=== PATIENT | female | born 1990 | race Caucasian/White ===

== ENCOUNTER 2018-07-12 15:25 | Emergency (ER) | payer SELFPAY ==
--- NOTE | 2018-07-12 15:29 | ED.FEMALEGU ---
HPI - Female Genitourinary <JENN Carrizales - Last Filed: 07/12/18 22:11> General Chief complaint: Abdominal Pain Stated complaint: states has a female problem Time Seen by Provider: 07/12/18 15:29 Source: patient Mode of arrival: ambulatory Limitations: no limitations History of Present Illness HPI Narrative: 28-year-old female with history of PCOS is an everyday smoker here for multiple complaints. She states she has had breast pain to bilateral breast along with chest pain for the past several days. She denies any drainage or redness to the breast. She also complains of having a bilateral lower abdominal pain right greater than left over the same timeframe. She denies any urinary symptoms. Positive p.o. intake. No nausea vomiting. She denies any shortness of breath. No flank pain. She denies any urinary symptoms. Last bowel movement was yesterday and was unremarkable. She denies any strenuous activity. She denies any trauma to the painful areas. She denies any stressors or relievers of her pain. Related Data Allergies Allergy/AdvReac Type Severity Reaction Status Date / Time No Known Drug Allergies Allergy Verified 07/12/18 15:45 Review of Systems <JENN Carrizales - Last Filed: 07/12/18 22:11> Constitutional Denies chills, Denies fatigue, Denies fever(s), Denies lethargy and Denies weakness Eyes Denies change in vision, Denies eye discharge, Denies irritation and Denies loss of vision ENT Ears, Nose, Mouth, and Throat: Denies change in voice, Denies neck pain and Denies sore throat Cardiovascular Denies dyspnea and Denies dyspnea on exertion Comments: Chest pain Respiratory Denies cough, Denies dyspnea, Denies dyspnea on exertion and Denies wheezing Gastrointestinal Comments: Bilateral lower abdominal pain and pelvic pain right greater than left Genitourinary Denies hematuria, Denies flank pain, Denies urinary incontinence and Denies urinary urgency Musculoskeletal Denies neck pain Integumentary/Breasts Denies pruritus, Denies erythema, Denies rash and Denies wounds Comments: Tenderness to bilateral breasts Neurologic Denies confusion, Denies loss of vision and Denies weakness Psychiatric Denies anxiety, Denies confusion, Denies depression, Denies homicidal ideation and Denies suicidal ideation Endocrine Denies fatigue and Denies flushing Hematologic/Lymphatic Denies easy bruising Allergic/Immunologic Denies wheezing Exam <JENN Carrizales - Last Filed: 07/12/18 22:11> Initial Vital Signs Initial Vital Signs: Vital Signs Temperature 99.1 F 07/12/18 15:40 Pulse Rate 75 07/12/18 15:40 Respiratory Rate 18 07/12/18 15:40 Blood Pressure 124/85 07/12/18 15:40 Pulse Oximetry 100 07/12/18 15:40 Const General: cooperative and well developed Nutritional Appearance: well nourished Orientation: alert, awake, oriented x3 and not confused [facility] Mouth: oral mucosae normal and moist mucous membranes Eyes General: appearance normal, both eyes and all related structures Eyelids: eyelids normal Conjunctivae: conjunctivae normal Sclera: sclerae normal Pupils: PERRL EOM: EOM intact bilaterally Chest Chest: tenderness (Tenderness on palpation to anterior chest wall) Breast inspection: normal inspection of the breasts and other (Bilateral breast with normal inspection. No abnormal findings with exception of tenderness on palpation. No redness no drainage) Resp Effort & Inspection: normal respiratory effort, able to speak in complete sentences, no respiratory distress and no use of accessory muscles Auscultation: clear to auscultation bilaterally, no rales, no rhonchi and no wheezes Cardio Rate: regular rate Rhythm: regular rhythm Heart Sounds: no click, no gallops, no murmurs and no rubs Pulses: normal peripheral pulses GI Inspection: non-distended Palpation: soft, no hepatosplenomegaly, No guarding, No pulsatile mass and tender (Tenderness to the suprapubic region and also to the right lower quadrant) Auscultation: normal bowel sounds General: No CVA tenderness Skin General: no rashes or lesions noted, No jaundice and No petechiae Neuro General: alert, oriented x3, gait normal and no focal motor deficits Speech: speech normal <Sabas Carr DO - Last Filed: 07/14/18 20:08> Initial Vital Signs Initial Vital Signs: Vital Signs Temperature 99.1 F 07/12/18 15:40 Pulse Rate 75 07/12/18 15:40 Respiratory Rate 18 07/12/18 15:40 Blood Pressure 124/85 07/12/18 15:40 Pulse Oximetry 100 07/12/18 15:40 Course <JENN Carrizales - Last Filed: 07/12/18 22:11> Orders Ordered: Discontinued Medications Sodium Chloride (Normal Saline 0.9%) 1,000 mls @ 1,000 mls/hr IV BOLUS ONE Stop: 07/12/18 16:56 Last Infusion: 07/12/18 17:27 Dose: 0 mls/hr Admin: 07/12/18 16:34 Dose: 1,000 mls/hr Vital Signs - 8 hr 07/12/18 15:40 07/12/18 16:42 07/12/18 18:05 Temperature 99.1 F Pulse Rate 75 61 72 Respiratory Rate 18 16 17 Blood Pressure 124/85 121/80 Blood Pressure [Left Arm] 104/61 Pulse Oximetry 100 100 97 <Sabas Carr DO - Last Filed: 07/14/18 20:08> Orders Ordered: Discontinued Medications Sodium Chloride (Normal Saline 0.9%) 1,000 mls @ 1,000 mls/hr IV BOLUS ONE Stop: 07/12/18 16:56 Last Infusion: 07/12/18 17:27 Dose: 0 mls/hr Admin: 07/12/18 16:34 Dose: 1,000 mls/hr Vital Signs - 8 hr 07/12/18 15:40 07/12/18 16:42 07/12/18 18:05 Temperature 99.1 F Pulse Rate 75 61 72 Respiratory Rate 18 16 17 Blood Pressure 124/85 121/80 Blood Pressure [Left Arm] 104/61 Pulse Oximetry 100 100 97 MDM - Female Genitourinary <JENN Carrizales - Last Filed: 07/12/18 22:11> Lab Data Result diagrams: 07/12/18 16:10 07/12/18 16:10 Lab Results 07/12/18 07/12/18 07/12/18 Range/Units 15:40 16:10 16:10 WBC 11.0 (4.5-11.0) X10^3/uL RBC 4.06 (4.0-5.2) X10^6/uL Hgb 13.6 (12.0-16.0) g/dL Hct 38.9 (36-46) % MCV 95.9 (80-100) fL MCH 33.5 (26-34) PG MCHC 35.0 (30-36) % RDW 12.5 (11.6-14.8) % Plt Count 182 (150-400) X10^3/uL Neut % (Auto) 74.2 (50-75) % Lymph % (Auto) 18.8 L (25-40) % Dod[place]idge % (Auto) 3.7 (3-14) % Eos % (Auto) 2.9 (2-4) % Baso % (Auto) 0.4 (0-2) % Neut # (Auto) 8200 H (4081-5493) /uL Sodium 142 (137-145) mmol/L Potassium 3.9 (3.4-5.1) mmol/L Chloride 108 H (98-107) mmol/L Carbon Dioxide 21 L (22-32) mmol/L BUN 12 (7-17) mg/dL Creatinine 0.70 (0.52-1.04) mg/dL Estimated GFR > 60.0 (>60) mL/min BUN/Creatinine Ratio 17.1 (6-22) Glucose 102 H (70-100) mg/dL Calcium 8.9 (8.4-10.2) mg/dL Total Bilirubin 0.2 (0.2-1.3) mg/dL AST 13 L (14-36) IU/L ALT 19 (9-52) IU/L Alkaline Phosphatase 50 (38-126) U/L Total Creatine Kinase (30-135) U/L CK-MB (CK-2) CK-MB (CK-2) Rel Index Troponin I (0.01-0.034) ng/mL Total Protein 7.0 (6.3-8.2) g/dL Albumin 4.4 (3.5-5.0) g/dL Globulin 2.6 (1.7-4.1) g/dL Albumin/Globulin Ratio 1.7 (1.0-2.8) Lipase 205 (23-300) U/L Urine RBC 1-5/hpf (0-5/HPF) Urine WBC None seen (0-5/HPF) Ur Squamous Epith Cells 1-5 /hpf Urine Bacteria None seen (None) Urine Mucus 2+ H (Negative) Ur Culture Indicated? Cult not indicated Micro UA Comment Not Reportable 07/12/18 Range/Units 16:10 WBC (4.5-11.0) X10^3/uL RBC (4.0-5.2) X10^6/uL Hgb (12.0-16.0) g/dL Hct (36-46) % MCV (80-100) fL MCH (26-34) PG MCHC (30-36) % RDW (11.6-14.8) % Plt Count (150-400) X10^3/uL Neut % (Auto) (50-75) % Lymph % (Auto) (25-40) % Doddridge % (Auto) (3-14) % Eos % (Auto) (2-4) % Baso % (Auto) (0-2) % Neut # (Auto) (8854-7470) /uL Sodium (137-145) mmol/L Potassium (3.4-5.1) mmol/L Chloride (98-107) mmol/L Carbon Dioxide (22-32) mmol/L BUN (7-17) mg/dL Creatinine (0.52-1.04) mg/dL Estimated GFR (>60) mL/min BUN/Creatinine Ratio (6-22) Glucose (70-100) mg/dL Calcium (8.4-10.2) mg/dL Total Bilirubin (0.2-1.3) mg/dL AST (14-36) IU/L ALT (9-52) IU/L Alkaline Phosphatase (38-126) U/L Total Creatine Kinase 32 (30-135) U/L CK-MB (CK-2) TNP CK-MB (CK-2) Rel Index TNP Troponin I < 0.012 (0.01-0.034) ng/mL Total Protein (6.3-8.2) g/dL Albumin (3.5-5.0) g/dL Globulin (1.7-4.1) g/dL Albumin/Globulin Ratio (1.0-2.8) Lipase (23-300) U/L Urine RBC (0-5/HPF) Urine WBC (0-5/HPF) Ur Squamous Epith Cells Urine Bacteria (None) Urine Mucus (Negative) Ur Culture Indicated? Micro UA Comment Point of Care Testing Test Results Negative Urine Dip Bedside Urine Glucose Negative Bedside Urine Bilirubin - Negative Bedside Urine Ketone - Negative Urine Specific Reedley 1.030 Bedside Urine Occult Blood + Bedside Urine pH 6.0 Bedside Urine Protein - Negative Bedside Urine Urobilinogen - Negative Bedside Urine Nitrite - Negative Bedside Urine Leukocytes - Negative Esterase Imaging Data CT scan - abdomen: Radiologist's impression: [address] [address] [address] Scan Report Signed Patient: Flores Sorensen [facility]#: [id number] : 1990Acct:[id number] Age/Sex: 28 / FDate of Service: 07/12/18 Loc: ED Accession Number: [id number] Procedure: CT chest abd pel w con Ordering Provider: Ian Pantoja PROCEDURE: CT CHEST ABD PEL W CON INDICATIONS: Pain to chest, breast and right lower quadrant TECHNIQUE: After the administration of intravenous contrast, 5 mm thick sections acquired from the lung apices to the symphysis. 5 mm coronal and sagittal reformats were performed, with additional 7 mm MIP reformats through the lungs. For radiation dose reduction, the following was used: automated exposure control, adjustment of mA and/or kV according to patient size. COMPARISON: None. FINDINGS: Image quality: Excellent. CHEST: Lungs and pleura: No acute airspace opacities. No pleural effusions or pneumothorax. Central and peripheral airways appear patent and normal in caliber. Mediastinum: Heart size is normal. No pericardial effusion. No mediastinal or hilar adenopathy by size criteria. Thoracic aorta and central pulmonary arteries are normal in size. Esophagus is normal in caliber. No hiatal hernia. Chest wall: No axillary or supraclavicular adenopathy by size criteria. Thyroid gland is unremarkable. ABDOMEN: Solid organs: Liver is enlarged with steatosis. Gallbladder demonstrates a slight layering appearance of hyperdensity without wall thickening. Biliary system is non dilated. Pancreas enhances normally. Spleen is normal in size and enhancement. No adrenal nodules. Kidneys demonstrate normal size and enhancement, without hydronephrosis. Peritoneum and bowel: Bowel loops demonstrate normal wall thickness and caliber. No free fluid or air. Appendix is unremarkable. Nodes and vessels: No retroperitoneal or mesenteric adenopathy by size criteria. Aorta and inferior vena cava are normal in size. Miscellaneous: No ventral hernias. PELVIS: Genitourinary: Bladder wall thickness is normal. 16mm enhancing low attenuation focus is present within the left adnexa. There is trace stranding fluid. Miscellaneous: No inguinal hernias or adenopathy. Bones: No suspicious bony lesions. No vertebral body compression fractures. IMPRESSION: 1. Enhancing focus within the left adnexa suggestive of hemorrhagic cyst. 2. Hepatomegaly and steatosis. 3. Mild appearance of layering hyperdensity within the gallbladder without wall thickening suggestive of sludge. Dictated by: Xi Rushing M.D. on 07/12/2018 at 16:50 Approved by: Xi Rushing M.D. on 07/12/2018 at 16:54 ECG Data Interpretation: EKG shows normal sinus rhythm with no ST elevation or depression. No ectopy. Ventricular rate is 73. Pr interval of 127. QRS duration of 89. QT 383. MDM Narrative Medical decision making narrative: CBC was obtained shows slightly elevated neutrophils otherwise is unremarkable. Chem panel lipase were obtained and were negative. One set of cardiac enzymes were obtained were negative. CT of abdomen chest and pelvis was obtained and shows area to the left add masses suggestive of a hemorrhagic cyst. It does show that there is hepatomegaly with steatosis. CT also shows that there is sludge to the gallbladder without evidence of cholecystitis. Suspect that her breast tenderness may be due to PCOS and hormone influence. Pain was reproducible to the chest with palpation to the chest wall indicating chest wall pain. Pain into the pelvic area secondary to PCOS and the hemorrhagic cyst. [id number] Tylenol or Motrin as needed for any discomfort. Follow up with primary care provider later this week. If any worsening symptoms return to the emergency room. <Sabas Carr DO - Last Filed: 07/14/18 20:08> Lab Data Lab Results 07/12/18 07/12/18 07/12/18 Range/Units 15:40 16:10 16:10 WBC 11.0 (4.5-11.0) X10^3/uL RBC 4.06 (4.0-5.2) X10^6/uL Hgb 13.6 (12.0-16.0) g/dL Hct 38.9 (36-46) % MCV 95.9 (80-100) fL MCH 33.5 (26-34) PG MCHC 35.0 (30-36) % RDW 12.5 (11.6-14.8) % Plt Count 182 (150-400) X10^3/uL Neut % (Auto) 74.2 (50-75) % Lymph % (Auto) 18.8 L (25-40) % Doddridge % (Auto) 3.7 (3-14) % Eos % (Auto) 2.9 (2-4) % Baso % (Auto) 0.4 (0-2) % Neut # (Auto) 8200 H (6993-2950) /uL Sodium 142 (137-145) mmol/L Potassium 3.9 (3.4-5.1) mmol/L Chloride 108 H (98-107) mmol/L Carbon Dioxide 21 L (22-32) mmol/L BUN 12 (7-17) mg/dL Creatinine 0.70 (0.52-1.04) mg/dL Estimated GFR > 60.0 (>60) mL/min BUN/Creatinine Ratio 17.1 (6-22) Glucose 102 H (70-100) mg/dL Calcium 8.9 (8.4-10.2) mg/dL Total Bilirubin 0.2 (0.2-1.3) mg/dL AST 13 L (14-36) IU/L ALT 19 (9-52) IU/L Alkaline Phosphatase 50 (38-126) U/L Total Creatine Kinase (30-135) U/L CK-MB (CK-2) CK-MB (CK-2) Rel Index Troponin I (0.01-0.034) ng/mL Total Protein 7.0 (6.3-8.2) g/dL Albumin 4.4 (3.5-5.0) g/dL Globulin 2.6 (1.7-4.1) g/dL Albumin/Globulin Ratio 1.7 (1.0-2.8) Lipase 205 (23-300) U/L Urine RBC 1-5/hpf (0-5/HPF) Urine WBC None seen (0-5/HPF) Ur Squamous Epith Cells 1-5 /hpf Urine Bacteria None seen (None) Urine Mucus 2+ H (Negative) Ur Culture Indicated? Cult not indicated Micro UA Comment Not Reportable 07/12/18 Range/Units 16:10 WBC (4.5-11.0) X10^3/uL RBC (4.0-5.2) X10^6/uL Hgb (12.0-16.0) g/dL Hct (36-46) % MCV (80-100) fL MCH (26-34) PG MCHC (30-36) % RDW (11.6-14.8) % Plt Count (150-400) X10^3/uL Neut % (Auto) (50-75) % Lymph % (Auto) (25-40) % Doddridge % (Auto) (3-14) % Eos % (Auto) (2-4) % Baso % (Auto) (0-2) % Neut # (Auto) (3068-1286) /uL Sodium (137-145) mmol/L Potassium (3.4-5.1) mmol/L Chloride (98-107) mmol/L Carbon Dioxide (22-32) mmol/L BUN (7-17) mg/dL Creatinine (0.52-1.04) mg/dL Estimated GFR (>60) mL/min BUN/Creatinine Ratio (6-22) Glucose (70-100) mg/dL Calcium (8.4-10.2) mg/dL Total Bilirubin (0.2-1.3) mg/dL AST (14-36) IU/L ALT (9-52) IU/L Alkaline Phosphatase (38-126) U/L Total Creatine Kinase 32 (30-135) U/L CK-MB (CK-2) TNP CK-MB (CK-2) Rel Index TNP Troponin I < 0.012 (0.01-0.034) ng/mL Total Protein (6.3-8.2) g/dL Albumin (3.5-5.0) g/dL Globulin (1.7-4.1) g/dL Albumin/Globulin Ratio (1.0-2.8) Lipase (23-300) U/L Urine RBC (0-5/HPF) Urine WBC (0-5/HPF) Ur Squamous Epith Cells Urine Bacteria (None) Urine Mucus (Negative) Ur Culture Indicated? Micro UA Comment Point of Care Testing Test Results Negative Urine Dip Bedside Urine Glucose Negative Bedside Urine Bilirubin - Negative Bedside Urine Ketone - Negative Urine Specific Reedley 1.030 Bedside Urine Occult Blood + Bedside Urine pH 6.0 Bedside Urine Protein - Negative Bedside Urine Urobilinogen - Negative Bedside Urine Nitrite - Negative Bedside Urine Leukocytes - Negative Esterase Discharge Plan Departure Patient Disposition: Home Clinical Impression: Cyst of left ovary, Acute chest wall pain, Breast tenderness in female Discharge Date/Time: 07/12/18 18:06 Interventions: ED Discharge Assessment Last Done: 07/12/18 18:05 Instructions: DI for Ovarian Cyst Activity Restrictions/Additional Instructions: CT of the chest and abdomen was obtained and does show a hemorrhagic cyst to the left ovary most likely causing your pelvic/abdominal discomfort. CT also shows fatty liver an enlargement this is not an acute finding. CT also shows some sludge to the gallbladder however no signs of cholecystitis. Pain into the chest appears to be chest wall pain and musculoskeletal in nature. Use [id number] ibuprofen as needed for any discomfort for this. Suspect that the breast pain is due to hormone secondary to the PCOS/hemorrhagic cyst. Also use [id number] Tylenol or Motrin as needed for any discomfort for this. Follow up with primary care provider later this week for re-evaluation. For any worsening symptoms return to the emergency room. You may call OBGYN if unable to follow up with primary care provider. Referrals: Tonya Rosenthal MD [Physician] - <Sabas Carr DO - Last Filed: 07/14/18 20:08> Cosign ED Attending Pamela Attestation: I was available for consultation during this patient's emergency department encounter
[2018-07-12 15:40] VITALS: BP 124/85; PULSE 75; RESP 18; TEMP 37.3; O2SAT 100; BMI 30.2
[2018-07-12 15:49] LABS: Bacteria Urine None Seen; WBC Urine None Seen (0-5/HPF)
--- NOTE | 2018-07-12 15:57 | DI.CT.S_ITS ---
PROCEDURE: CT CHEST ABD PEL W CON INDICATIONS: Pain to chest, breast and right lower quadrant TECHNIQUE: After the administration of intravenous contrast, 5 mm thick sections acquired from the lung apices to the symphysis. 5 mm coronal and sagittal reformats were performed, with additional 7 mm MIP reformats through the lungs. For radiation dose reduction, the following was used: automated exposure control, adjustment of mA and/or kV according to patient size. COMPARISON: None. FINDINGS: Image quality: Excellent. CHEST: Lungs and pleura: No acute airspace opacities. No pleural effusions or pneumothorax. Central and peripheral airways appear patent and normal in caliber. Mediastinum: Heart size is normal. No pericardial effusion. No mediastinal or hilar adenopathy by size criteria. Thoracic aorta and central pulmonary arteries are normal in size. Esophagus is normal in caliber. No hiatal hernia. Chest wall: No axillary or supraclavicular adenopathy by size criteria. Thyroid gland is unremarkable. ABDOMEN: Solid organs: Liver is enlarged with steatosis. Gallbladder demonstrates a slight layering appearance of hyperdensity without wall thickening. Biliary system is non dilated. Pancreas enhances normally. Spleen is normal in size and enhancement. No adrenal nodules. Kidneys demonstrate normal size and enhancement, without hydronephrosis. Peritoneum and bowel: Bowel loops demonstrate normal wall thickness and caliber. No free fluid or air. Appendix is unremarkable. Nodes and vessels: No retroperitoneal or mesenteric adenopathy by size criteria. Aorta and inferior vena cava are normal in size. Miscellaneous: No ventral hernias. PELVIS: Genitourinary: Bladder wall thickness is normal. 16mm enhancing low attenuation focus is present within the left adnexa. There is trace stranding fluid. Miscellaneous: No inguinal hernias or adenopathy. Bones: No suspicious bony lesions. No vertebral body compression fractures. IMPRESSION: 1. Enhancing focus within the left adnexa suggestive of hemorrhagic cyst. 2. Hepatomegaly and steatosis. 3. Mild appearance of layering hyperdensity within the gallbladder without wall thickening suggestive of sludge. Dictated by: Xi Rushing M.D. on 07/12/2018 at 16:50 Approved by: Xi Rushing M.D. on 07/12/2018 at 16:54
[2018-07-12 15:58] LABS: Culture Indicated Urine Cult Not Indicated; Mucus Urine 2+ (Negative); RBC Urine 1-5/HPF (0-5/HPF); Squamous Epithelial Cell Urine 1-5 /HPF
[2018-07-12 16:20] LABS: Add Manual Diff / Slide Review NO; Basophils Percent Auto 0.4 % (0-2); Eosinophils Percent Auto 2.9 % (2-4); Hematocrit 38.9 % (36-46); Hemoglobin 13.6 g/dL (12.0-16.0); Lymphocytes Percent Auto 18.8 % (25-40); Mean Corpuscular Hemoglobin 33.5 PG (26-34); Mean Corpuscular Volume 95.9 fL (80-100); Monocytes Percent Auto 3.7 % (3-14); Neutrophils Absolute Auto 8200 /uL (3000-5900); Neutrophils Percent Auto 74.2 % (50-75); Platelet Count 182 X10^3/uL (150-400); Red Blood Cell Count 4.06 X10^6/uL (4.0-5.2); Red Cell Distribution Width 12.5 % (11.6-14.8)
[2018-07-12 16:30] LABS: Alanine Aminotransferase 19 IU/L (9-52); Albumin 4.4 g/dL (3.5-5.0); Albumin Globulin Ratio 1.7 (1.0-2.8); Alkaline Phosphatase 50 U/L (38-126); Aspartate Aminotransferase 13 IU/L (14-36); BUN Creatinine Ratio 17.1 (6-22); Bilirubin Total 0.2 mg/dL (0.2-1.3); Blood Urea Nitrogen 12 mg/dL (7-17); Calcium 8.9 mg/dL (8.4-10.2); Carbon Dioxide 21 mmol/L (22-32); Chloride 108 mmol/L (98-107); Estimated Glomerular Filt Rate > 60.0 mL/min (>60); Globulin 2.6 g/dL (1.7-4.1); Glucose 102 mg/dL (70-100); HEMOLYSIS < 15 (0-50); Lipase 205 U/L (23-300); Potassium 3.9 mmol/L (3.4-5.1); Sodium 142 mmol/L (137-145)
[2018-07-12] MEDS: SODIUM CHLORIDE 0.9% 1,000 ML 1000 ML IV (16:34)
[2018-07-12 16:42] VITALS: BP 104/61; PULSE 61; RESP 16; O2SAT 100
[2018-07-12 17:19] LABS: Creatine Kinase 32 U/L (30-135)
--- NOTE | 2018-07-12 17:27 | ED_ITS ---
HPI - Female Genitourinary <JENN Carrizales - Last Filed: 07/12/18 22:11> General Chief complaint: Abdominal Pain Stated complaint: states has a female problem Time Seen by Provider: 07/12/18 15:29 Source: patient Mode of arrival: ambulatory Limitations: no limitations History of Present Illness HPI Narrative: 28-year-old female with history of PCOS is an everyday smoker here for multiple complaints. She states she has had breast pain to bilateral breast along with chest pain for the past several days. She denies any drainage or redness to the breast. She also complains of having a bilateral lower abdominal pain right greater than left over the same timeframe. She denies any urinary symptoms. Positive p.o. intake. No nausea vomiting. She denies any shortness of breath. No flank pain. She denies any urinary symptoms. Last bowel movement was yesterday and was unremarkable. She denies any strenuous activity. She denies any trauma to the painful areas. She denies any stressors or relievers of her pain. Related Data Allergies Allergy/AdvReac Type Severity Reaction Status Date / Time No Known Drug Allergies Allergy Verified 07/12/18 15:45 Review of Systems <JENN Carrizales - Last Filed: 07/12/18 22:11> Constitutional Denies chills, Denies fatigue, Denies fever(s), Denies lethargy and Denies weakness Eyes Denies change in vision, Denies eye discharge, Denies irritation and Denies loss of vision ENT Ears, Nose, Mouth, and Throat: Denies change in voice, Denies neck pain and Denies sore throat Cardiovascular Denies dyspnea and Denies dyspnea on exertion Comments: Chest pain Respiratory Denies cough, Denies dyspnea, Denies dyspnea on exertion and Denies wheezing Gastrointestinal Comments: Bilateral lower abdominal pain and pelvic pain right greater than left Genitourinary Denies hematuria, Denies flank pain, Denies urinary incontinence and Denies urinary urgency Musculoskeletal Denies neck pain Integumentary/Breasts Denies pruritus, Denies erythema, Denies rash and Denies wounds Comments: Tenderness to bilateral breasts Neurologic Denies confusion, Denies loss of vision and Denies weakness Psychiatric Denies anxiety, Denies confusion, Denies depression, Denies homicidal ideation and Denies suicidal ideation Endocrine Denies fatigue and Denies flushing Hematologic/Lymphatic Denies easy bruising Allergic/Immunologic Denies wheezing Exam <JENN Carrizales - Last Filed: 07/12/18 22:11> Initial Vital Signs Initial Vital Signs: Vital Signs Temperature 99.1 F 07/12/18 15:40 Pulse Rate 75 07/12/18 15:40 Respiratory Rate 18 07/12/18 15:40 Blood Pressure 124/85 07/12/18 15:40 Pulse Oximetry 100 07/12/18 15:40 Const General: cooperative and well developed Nutritional Appearance: well nourished Orientation: alert, awake, oriented x3 and not confused [facility] Mouth: oral mucosae normal and moist mucous membranes Eyes General: appearance normal, both eyes and all related structures Eyelids: eyelids normal Conjunctivae: conjunctivae normal Sclera: sclerae normal Pupils: PERRL EOM: EOM intact bilaterally Chest Chest: tenderness (Tenderness on palpation to anterior chest wall) Breast inspection: normal inspection of the breasts and other (Bilateral breast with normal inspection. No abnormal findings with exception of tenderness on palpation. No redness no drainage) Resp Effort & Inspection: normal respiratory effort, able to speak in complete sentences, no respiratory distress and no use of accessory muscles Auscultation: clear to auscultation bilaterally, no rales, no rhonchi and no wheezes Cardio Rate: regular rate Rhythm: regular rhythm Heart Sounds: no click, no gallops, no murmurs and no rubs Pulses: normal peripheral pulses GI Inspection: non-distended Palpation: soft, no hepatosplenomegaly, No guarding, No pulsatile mass and tender (Tenderness to the suprapubic region and also to the right lower quadrant ) Auscultation: normal bowel sounds General: No CVA tenderness Skin General: no rashes or lesions noted, No jaundice and No petechiae Neuro General: alert, oriented x3, gait normal and no focal motor deficits Speech: speech normal <Sabas Carr DO - Last Filed: 07/14/18 20:08> Initial Vital Signs Initial Vital Signs: Vital Signs Temperature 99.1 F 07/12/18 15:40 Pulse Rate 75 07/12/18 15:40 Respiratory Rate 18 07/12/18 15:40 Blood Pressure 124/85 07/12/18 15:40 Pulse Oximetry 100 07/12/18 15:40 Course <JENN Carrizales - Last Filed: 07/12/18 22:11> Orders Ordered: Discontinued Medications Sodium Chloride (Normal Saline 0.9%) 1,000 mls @ 1,000 mls/hr IV BOLUS ONE Stop: 07/12/18 16:56 Last Infusion: 07/12/18 17:27 Dose: 0 mls/hr Admin: 07/12/18 16:34 Dose: 1,000 mls/hr Vital Signs - 8 hr 07/12/18 15:40 07/12/18 16:42 07/12/18 18:05 Temperature 99.1 F Pulse Rate 75 61 72 Respiratory Rate 18 16 17 Blood Pressure 124/85 121/80 Blood Pressure [Left Arm] 104/61 Pulse Oximetry 100 100 97 <Sabas Carr DO - Last Filed: 07/14/18 20:08> Orders Ordered: Discontinued Medications Sodium Chloride (Normal Saline 0.9%) 1,000 mls @ 1,000 mls/hr IV BOLUS ONE Stop: 07/12/18 16:56 Last Infusion: 07/12/18 17:27 Dose: 0 mls/hr Admin: 07/12/18 16:34 Dose: 1,000 mls/hr Vital Signs - 8 hr 07/12/18 15:40 07/12/18 16:42 07/12/18 18:05 Temperature 99.1 F Pulse Rate 75 61 72 Respiratory Rate 18 16 17 Blood Pressure 124/85 121/80 Blood Pressure [Left Arm] 104/61 Pulse Oximetry 100 100 97 MDM - Female Genitourinary <JENN Carrizales - Last Filed: 07/12/18 22:11> Lab Data Result diagrams: 07/12/18 16:10 07/12/18 16:10 Lab Results 07/12/18 07/12/18 07/12/18 Range/Units 15:40 16:10 16:10 WBC 11.0 (4.5-11.0) X10^3/uL RBC 4.06 (4.0-5.2) X10^6/uL Hgb 13.6 (12.0-16.0) g/dL Hct 38.9 (36-46) % MCV 95.9 (80-100) fL MCH 33.5 (26-34) PG MCHC 35.0 (30-36) % RDW 12.5 (11.6-14.8) % Plt Count 182 (150-400) X10^3/uL Neut % (Auto) 74.2 (50-75) % Lymph % (Auto) 18.8 L (25-40) % [place] % (Auto) 3.7 (3-14) % Eos % (Auto) 2.9 (2-4) % Baso % (Auto) 0.4 (0-2) % Neut # (Auto) 8200 H (2697-4348) /uL Sodium 142 (137-145) mmol/L Potassium 3.9 (3.4-5.1) mmol/L Chloride 108 H (98-107) mmol/L Carbon Dioxide 21 L (22-32) mmol/L BUN 12 (7-17) mg/dL Creatinine 0.70 (0.52-1.04) mg/dL Estimated GFR > 60.0 (>60) mL/min BUN/Creatinine Ratio 17.1 (6-22) Glucose 102 H (70-100) mg/dL Calcium 8.9 (8.4-10.2) mg/dL Total Bilirubin 0.2 (0.2-1.3) mg/dL AST 13 L (14-36) IU/L ALT 19 (9-52) IU/L Alkaline Phosphatase 50 (38-126) U/L Total Creatine Kinase (30-135) U/L CK-MB (CK-2) CK-MB (CK-2) Rel Index Troponin I (0.01-0.034) ng/mL Total Protein 7.0 (6.3-8.2) g/dL Albumin 4.4 (3.5-5.0) g/dL Globulin 2.6 (1.7-4.1) g/dL Albumin/Globulin Ratio 1.7 (1.0-2.8) Lipase 205 (23-300) U/L Urine RBC 1-5/hpf (0-5/HPF) Urine WBC None seen (0-5/HPF) Ur Squamous Epith Cells 1-5 /hpf Urine Bacteria None seen (None) Urine Mucus 2+ H (Negative) Ur Culture Indicated? Cult not indicated Micro UA Comment Not Reportable 07/12/18 Range/Units 16:10 WBC (4.5-11.0) X10^3/uL RBC (4.0-5.2) X10^6/uL Hgb (12.0-16.0) g/dL Hct (36-46) % MCV (80-100) fL MCH (26-34) PG MCHC (30-36) % RDW (11.6-14.8) % Plt Count (150-400) X10^3/uL Neut % (Auto) (50-75) % Lymph % (Auto) (25-40) % [place] % (Auto) (3-14) % Eos % (Auto) (2-4) % Baso % (Auto) (0-2) % Neut # (Auto) (5128-0130) /uL Sodium (137-145) mmol/L Potassium (3.4-5.1) mmol/L Chloride (98-107) mmol/L Carbon Dioxide (22-32) mmol/L BUN (7-17) mg/dL Creatinine (0.52-1.04) mg/dL Estimated GFR (>60) mL/min BUN/Creatinine Ratio (6-22) Glucose (70-100) mg/dL Calcium (8.4-10.2) mg/dL Total Bilirubin (0.2-1.3) mg/dL AST (14-36) IU/L ALT (9-52) IU/L Alkaline Phosphatase (38-126) U/L Total Creatine Kinase 32 (30-135) U/L CK-MB (CK-2) TNP CK-MB (CK-2) Rel Index TNP Troponin I < 0.012 (0.01-0.034) ng/mL Total Protein (6.3-8.2) g/dL Albumin (3.5-5.0) g/dL Globulin (1.7-4.1) g/dL Albumin/Globulin Ratio (1.0-2.8) Lipase (23-300) U/L Urine RBC (0-5/HPF) Urine WBC (0-5/HPF) Ur Squamous Epith Cells Urine Bacteria (None) Urine Mucus (Negative) Ur Culture Indicated? Micro UA Comment Point of Care Testing Test Results Negative Urine Dip Bedside Urine Glucose Negative Bedside Urine Bilirubin - Negative Bedside Urine Ketone - Negative Urine Specific [place] 1.030 Bedside Urine Occult Blood + Bedside Urine pH 6.0 Bedside Urine Protein - Negative Bedside Urine Urobilinogen - Negative Bedside Urine Nitrite - Negative Bedside Urine Leukocytes - Negative Esterase Imaging Data CT scan - abdomen: Radiologist's impression: [address] [id number] [address] Scan Report Signed Patient: Flores Sorensen BANNER#: [id number] : 1990Acct:[id number] Age/Sex: 28 / FDate of Service: 07/12/18 Loc: ED Accession Number: [id number] Procedure: CT chest abd pel w con Ordering Provider: Ian Pantoja PROCEDURE: CT CHEST ABD PEL W CON INDICATIONS: Pain to chest, breast and right lower quadrant TECHNIQUE: After the administration of intravenous contrast, 5 mm thick sections acquired from the lung apices to the symphysis. 5 mm coronal and sagittal reformats were performed, with additional 7 mm MIP reformats through the lungs. For radiation dose reduction, the following was used: automated exposure control, adjustment of mA and/or kV according to patient size. COMPARISON: None. FINDINGS: Image quality: Excellent. CHEST: Lungs and pleura: No acute airspace opacities. No pleural effusions or pneumothorax. Central and peripheral airways appear patent and normal in caliber. Mediastinum: Heart size is normal. No pericardial effusion. No mediastinal or hilar adenopathy by size criteria. Thoracic aorta and central pulmonary arteries are normal in size. Esophagus is normal in caliber. No hiatal hernia. Chest wall: No axillary or supraclavicular adenopathy by size criteria. Thyroid gland is unremarkable. ABDOMEN: Solid organs: Liver is enlarged with steatosis. Gallbladder demonstrates a slight layering appearance of hyperdensity without wall thickening. Biliary system is non dilated. Pancreas enhances normally. Spleen is normal in size and enhancement. No adrenal nodules. Kidneys demonstrate normal size and enhancement, without hydronephrosis. Peritoneum and bowel: Bowel loops demonstrate normal wall thickness and caliber. No free fluid or air. Appendix is unremarkable. Nodes and vessels: No retroperitoneal or mesenteric adenopathy by size criteria. Aorta and inferior vena cava are normal in size. Miscellaneous: No ventral hernias. PELVIS: Genitourinary: Bladder wall thickness is normal. 16mm enhancing low attenuation focus is present within the left adnexa. There is trace stranding fluid. Miscellaneous: No inguinal hernias or adenopathy. Bones: No suspicious bony lesions. No vertebral body compression fractures. IMPRESSION: 1. Enhancing focus within the left adnexa suggestive of hemorrhagic cyst. 2. Hepatomegaly and steatosis. 3. Mild appearance of layering hyperdensity within the gallbladder without wall thickening suggestive of sludge. Dictated by: Xi Rushing M.D. on 07/12/2018 at 16:50 Approved by: Xi Rushing M.D. on 07/12/2018 at 16:54 ECG Data Interpretation: EKG shows normal sinus rhythm with no ST elevation or depression. No ectopy. Ventricular rate is 73. Pr interval of 127. QRS duration of 89. QT 383. MDM Narrative Medical decision making narrative: CBC was obtained shows slightly elevated neutrophils otherwise is unremarkable. Chem panel lipase were obtained and were negative. One set of cardiac enzymes were obtained were negative. CT of abdomen chest and pelvis was obtained and shows area to the left add masses suggestive of a hemorrhagic cyst. It does show that there is hepatomegaly with steatosis. CT also shows that there is sludge to the gallbladder without evidence of cholecystitis. Suspect that her breast tenderness may be due to PCOS and hormone influence. Pain was reproducible to the chest with palpation to the chest wall indicating chest wall pain. Pain into the pelvic area secondary to PCOS and the hemorrhagic cyst. [id number] Tylenol or Motrin as needed for any discomfort. Follow up with primary care provider later this week. If any worsening symptoms return to the emergency room. <Sabas Carr DO - Last Filed: 07/14/18 20:08> Lab Data Lab Results 07/12/18 07/12/18 07/12/18 Range/Units 15:40 16:10 16:10 WBC 11.0 (4.5-11.0) X10^3/uL RBC 4.06 (4.0-5.2) X10^6/uL Hgb 13.6 (12.0-16.0) g/dL Hct 38.9 (36-46) % MCV 95.9 (80-100) fL MCH 33.5 (26-34) PG MCHC 35.0 (30-36) % RDW 12.5 (11.6-14.8) % Plt Count 182 (150-400) X10^3/uL Neut % (Auto) 74.2 (50-75) % Lymph % (Auto) 18.8 L (25-40) % [place] % (Auto) 3.7 (3-14) % Eos % (Auto) 2.9 (2-4) % Baso % (Auto) 0.4 (0-2) % Neut # (Auto) 8200 H (0713-0741) /uL Sodium 142 (137-145) mmol/L Potassium 3.9 (3.4-5.1) mmol/L Chloride 108 H (98-107) mmol/L Carbon Dioxide 21 L (22-32) mmol/L BUN 12 (7-17) mg/dL Creatinine 0.70 (0.52-1.04) mg/dL Estimated GFR > 60.0 (>60) mL/min BUN/Creatinine Ratio 17.1 (6-22) Glucose 102 H (70-100) mg/dL Calcium 8.9 (8.4-10.2) mg/dL Total Bilirubin 0.2 (0.2-1.3) mg/dL AST 13 L (14-36) IU/L ALT 19 (9-52) IU/L Alkaline Phosphatase 50 (38-126) U/L Total Creatine Kinase (30-135) U/L CK-MB (CK-2) CK-MB (CK-2) Rel Index Troponin I (0.01-0.034) ng/mL Total Protein 7.0 (6.3-8.2) g/dL Albumin 4.4 (3.5-5.0) g/dL Globulin 2.6 (1.7-4.1) g/dL Albumin/Globulin Ratio 1.7 (1.0-2.8) Lipase 205 (23-300) U/L Urine RBC 1-5/hpf (0-5/HPF) Urine WBC None seen (0-5/HPF) Ur Squamous Epith Cells 1-5 /hpf Urine Bacteria None seen (None) Urine Mucus 2+ H (Negative) Ur Culture Indicated? Cult not indicated Micro UA Comment Not Reportable 07/12/18 Range/Units 16:10 WBC (4.5-11.0) X10^3/uL RBC (4.0-5.2) X10^6/uL Hgb (12.0-16.0) g/dL Hct (36-46) % MCV (80-100) fL MCH (26-34) PG MCHC (30-36) % RDW (11.6-14.8) % Plt Count (150-400) X10^3/uL Neut % (Auto) (50-75) % Lymph % (Auto) (25-40) % [place] % (Auto) (3-14) % Eos % (Auto) (2-4) % Baso % (Auto) (0-2) % Neut # (Auto) (6084-0569) /uL Sodium (137-145) mmol/L Potassium (3.4-5.1) mmol/L Chloride (98-107) mmol/L Carbon Dioxide (22-32) mmol/L BUN (7-17) mg/dL Creatinine (0.52-1.04) mg/dL Estimated GFR (>60) mL/min BUN/Creatinine Ratio (6-22) Glucose (70-100) mg/dL Calcium (8.4-10.2) mg/dL Total Bilirubin (0.2-1.3) mg/dL AST (14-36) IU/L ALT (9-52) IU/L Alkaline Phosphatase (38-126) U/L Total Creatine Kinase 32 (30-135) U/L CK-MB (CK-2) TNP CK-MB (CK-2) Rel Index TNP Troponin I < 0.012 (0.01-0.034) ng/mL Total Protein (6.3-8.2) g/dL Albumin (3.5-5.0) g/dL Globulin (1.7-4.1) g/dL Albumin/Globulin Ratio (1.0-2.8) Lipase (23-300) U/L Urine RBC (0-5/HPF) Urine WBC (0-5/HPF) Ur Squamous Epith Cells Urine Bacteria (None) Urine Mucus (Negative) Ur Culture Indicated? Micro UA Comment Point of Care Testing Test Results Negative Urine Dip Bedside Urine Glucose Negative Bedside Urine Bilirubin - Negative Bedside Urine Ketone - Negative Urine Specific [place] 1.030 Bedside Urine Occult Blood + Bedside Urine pH 6.0 Bedside Urine Protein - Negative Bedside Urine Urobilinogen - Negative Bedside Urine Nitrite - Negative Bedside Urine Leukocytes - Negative Esterase Discharge Plan Departure Patient Disposition: Home Clinical Impression: Cyst of left ovary, Acute chest wall pain, Breast tenderness in female Discharge Date/Time: 07/12/18 18:06 Interventions: ED Discharge Assessment Last Done: 07/12/18 18:05 Instructions: DI for Ovarian Cyst Activity Restrictions/Additional Instructions: CT of the chest and abdomen was obtained and does show a hemorrhagic cyst to the left ovary most likely causing your pelvic/abdominal discomfort. CT also shows fatty liver an enlargement this is not an acute finding. CT also shows some sludge to the gallbladder however no signs of cholecystitis. Pain into the chest appears to be chest wall pain and musculoskeletal in nature. Use over -the-counter ibuprofen as needed for any discomfort for this. Suspect that the breast pain is due to hormone secondary to the PCOS/hemorrhagic cyst. Also use [id number] Tylenol or Motrin as needed for any discomfort for this. Follow up with primary care provider later this week for re-evaluation. For any worsening symptoms return to the emergency room. You may call OBGYN if unable to follow up with primary care provider. Referrals: Tonya Rosenthal MD [Physician] - <Sabas Carr DO - Last Filed: 07/14/18 20:08> Cosign ED Attending Pamela Attestation: I was available for consultation during this patient's emergency department encounter
[2018-07-12 17:36] LABS: Troponin I < 0.012 ng/mL (0.01-0.034)
[2018-07-12 18:05] VITALS: BP 121/80; PULSE 72; RESP 17; O2SAT 97
== END 2018-07-12 18:06 | disposition home or self-care (01) ==
PROVIDERS: Emergency Provider Nurse Practitioner Family
DX: N83.202 Unspecified ovarian cyst, left side (principal); R07.89 Other chest pain; N64.4 Mastodynia
CPT/HCPCS: 36591; 71260; 74177; 80053; 81003; 81015; 81025; 82550; 83690; 84484; 85025; 93005; 96360; 99283; 99285; Q9967

== ENCOUNTER 2018-09-15 16:28 | Emergency (ER) | payer SELFPAY ==
[2018-09-15 16:33] VITALS: BP 152/104; PULSE 104; RESP 16; TEMP 37.4; O2SAT 99; BMI 28.9
--- NOTE | 2018-09-15 17:25 | ED_ITS ---
HPI - Nausea/Vomiting/Diarrhea General Chief complaint: Nausea/Vomiting/Diarrhea Stated complaint: UNABLE TO KEEP THINGS DOWN Time Seen by Provider: 09/15/18 17:12 Source: patient Mode of arrival: ambulatory Limitations: no limitations History of Present Illness HPI Narrative: Patient is a 28-year-old female who has had vomiting and diarrhea ongoing for the last 4 days. She is unable to keep anything down. She is also in epileptic she says she used to be on Dilantin 50 mg twice daily but she has been out of it for the last 2 weeks. She said that he had a seizure yesterday. No seizure today. She has not had any fever or chills no recent travel or antibiotics. She has no significant watery diarrhea and vomiting up food and bile. MD complaint: nausea, vomiting and diarrhea Onset (ago): day(s) (4) Description of Vomiting: food contents and watery Description of Diarrhea: watery Location of pain: diffuse Severity: moderate Quality: cramping Pain Consistency: intermittent Relieving factors: none Exacerbating factors: none Related Data Home Medications Medication Instructions Recorded Confirmed gabapentin 100 mg PO TID 09/15/18 09/15/18 phenytoin [Dilantin Infatabs] 50 mg PO TID 09/15/18 09/15/18 topiramate [Topamax] 50 mg PO BID 09/15/18 09/15/18 Previous Rx's Medication Instructions Recorded ondansetron 4 mg PO Q6-8H PRN #10 tab 09/15/18 phenytoin [Dilantin Infatabs] 50 mg PO Q8H #90 tab 09/15/18 Allergies Allergy/AdvReac Type Severity Reaction Status Date / Time oxcarbazepine Allergy Verified 09/15/18 16:33 [From Trileptal] Review of Systems Review of Systems GENERAL: Denies chills, fatigue, malaise, fever, sweats, travel HEENT: Denies sinus pain, ear pain, sore throat, difficulty swallowing, neck pain RESPIRATORY: Denies dyspnea, cough, wheezing, hemoptysis, sputum. CARDIOVASCULAR: Denies chest pain, palpitations, orthopnea, edema GASTROINTESTINAL: See HPI : Denies dysuria, frequency, incontinence, hematuria, urinary retention, flank pain. MUSCULOSKELETAL: Denies weakness, joint pain, or bony pain SKIN: No rash, no erythema, no pruritus NEUROLOGIC: Denies weakness, dizziness, headache, numbness, change in speech, confusion PSYCHIATRIC: No concerning psychosocial issues. 12 point review of systems is negative except for those stated above and HPI PFSH Medical History Epilepsy (Acute) PCOS (polycystic ovarian syndrome) (Acute) Social History Smoking Status: Current every day smoker Social History Smoking Status: Current every day smoker Exam Initial Vital Signs Initial Vital Signs: Vital Signs Temperature 99.4 F 09/15/18 16:33 Pulse Rate 104 H 09/15/18 16:33 Respiratory Rate 16 09/15/18 16:33 Blood Pressure 152/104 H 09/15/18 16:33 Pulse Oximetry 99 09/15/18 16:33 GENERAL: Quite anxious young female appears in distress. Warm to touch HEENT: Head atraumatic,EOMI, pupils reactive dry mucous membranes CARDIOVASCULAR: Regular rate and rhythm without murmurs, rubs or gallops. RESPIRATORY: Breath sounds equal bilaterally, no wheezes rales or rhonchi. ABDOMEN: Soft, mild diffuse tenderness across abdomen without localization no guarding or rebound EXTREMITIES: Normal range of motion, no clubbing or edema. Neurovascularly intact NEUROLOGICAL: Alert and oriented x4.Normal gait and speech. Cranial nerves II through XII grossly intact. SKIN: Warm, dry, no laceration, no petechiae, no rashes or lesions. Course Orders Ordered: ED Orders 09/15/18 17:00 Urine Microscopic Stat 09/15/18 17:20 Complete Blood Count AUTO DIFF Stat Comprehensive Metabolic Panel Stat Lipase Stat Discontinued Medications Sodium Chloride (Normal Saline 0.9%) 1,000 mls @ 1,000 mls/hr IV CONT CYDNEY Last Infusion: 09/15/18 19:01 Dose: 0 mls/hr Admin: 09/15/18 17:28 Dose: 1,000 mls/hr Ketorolac Tromethamine (Toradol) 30 mg IV NOW ONE Stop: 09/15/18 17:20 Last Admin: 09/15/18 17:28 Dose: 30 mg Ondansetron HCl (Zofran) 4 mg IV NOW ONE Stop: 09/15/18 17:20 Last Admin: 09/15/18 17:28 Dose: 4 mg Pantoprazole Sodium (Protonix) 40 mg IV NOW ONE Stop: 09/15/18 17:20 Last Admin: 09/15/18 17:28 Dose: 40 mg Vital Signs - 8 hr 09/15/18 16:33 09/15/18 18:38 09/15/18 19:02 Temperature 99.4 F Pulse Rate 104 H 71 58 L Respiratory Rate 16 13 10 L Blood Pressure 152/104 H Blood Pressure [Left Arm] 127/77 115/80 Pulse Oximetry 99 99 98 MDM - Nausea/Vomiting/Diarrhea Lab Data Attestation: I reviewed the patient's lab results. Result diagrams: 09/15/18 17:20 09/15/18 17:20 Lab Results 09/15/18 09/15/18 09/15/18 Range/Units 17:00 17:20 17:20 WBC 13.2 H (4.5-11.0) X10^3/uL RBC 4.72 (4.0-5.2) X10^6/uL Hgb 15.4 (12.0-16.0) g/dL Hct 44.8 (36-46) % MCV 94.9 (80-100) fL MCH 32.5 (26-34) PG MCHC 34.3 (30-36) % RDW 13.0 (11.6-14.8) % Plt Count 267 (150-400) X10^3/uL Neut % (Auto) 71.3 (50-75) % Lymph % (Auto) 21.6 L (25-40) % [place] % (Auto) 4.7 (3-14) % Eos % (Auto) 1.9 L (2-4) % Baso % (Auto) 0.5 (0-2) % Neut # (Auto) 9400 H (8388-7176) /uL Lymph # (Auto) 2900 (0284-0160) /uL [place] # (Auto) 600 (0-900) /uL Eos # (Auto) 200 (0-450) /uL Baso # (Auto) 100 (0-100) /uL Sodium 140 (137-145) mmol/L Potassium 3.9 (3.4-5.1) mmol/L Chloride 106 (98-107) mmol/L Carbon Dioxide 23 (22-32) mmol/L BUN 13 (7-17) mg/dL Creatinine 0.70 (0.52-1.04) mg/dL Estimated GFR > 60.0 (>60) mL/min BUN/Creatinine Ratio 18.6 (6-22) Glucose 86 (70-100) mg/dL Calcium 9.5 (8.4-10.2) mg/dL Total Bilirubin 0.5 (0.2-1.3) mg/dL AST 19 (14-36) IU/L ALT 17 (9-52) IU/L Alkaline Phosphatase 58 (38-126) U/L Total Protein 8.2 (6.3-8.2) g/dL Albumin 4.8 (3.5-5.0) g/dL Globulin 3.4 (1.7-4.1) g/dL Albumin/Globulin Ratio 1.4 (1.0-2.8) Lipase 186 (23-300) U/L Urine RBC None seen (0-5/HPF) Urine WBC None seen (0-5/HPF) Ur Squamous Epith Cells 1-5 /hpf Amorphous Sediment 3+ Urine Bacteria None seen (None) Ur Culture Indicated? Cult not indicated Point of Care Testing Test Results Negative Urine Dip Bedside Urine Glucose Negative Bedside Urine Bilirubin - Negative Bedside Urine Ketone - Negative Urine Specific [place] 1.015 Bedside Urine Occult Blood ++ Bedside Urine pH 8.0 Bedside Urine Protein - Negative Bedside Urine Urobilinogen - Negative Bedside Urine Nitrite - Negative Bedside Urine Leukocytes - Negative Esterase MDM Narrative Medical decision making narrative: patient overall is tolerating fluids she is feeling much better she is requesting if she can eat food. I have written her a new prescription for Dilantin. No seizure today. have also given her reference for all local neurologist. Discharge Plan Departure Patient Disposition: Home Clinical Impression: Gastroenteritis Discharge Date/Time: 09/15/18 19:26 Interventions: ED Discharge Assessment Last Done: 09/15/18 19:25 Instructions: DI for Viral Gastroenteritis -- Adult Activity Restrictions/Additional Instructions: 1) You have been diagnosed with gastroenteritis 2) What to do: Drink frequent but small amounts of fluids. I recommend Gatorade or a Gatorade-like product, as it has small amounts of sugar and salts that improve fluid retention. 3) Take medications as directed 4) Follow up with your primary care provider in 2-3 days 5) Return to ER if you should have any new or worsening symptoms such as, unable to hold down fluids despite use of anti-nausea medications and the small volume oral rehydration strategy. Prescriptions: New ondansetron 4 mg tablet,disintegrating 4 mg PO Q6-8H PRN (Reason: nausea and vomiting) Qty: 10 RF: 0 phenytoin [Dilantin Infatabs] 50 mg tablet,chewable 50 mg PO Q8H Qty: 90 RF: 0 No Action phenytoin [Dilantin Infatabs] 50 mg Tablet,Chewable 50 mg PO TID RF: 0 gabapentin 100 mg Capsule 100 mg PO TID RF: 0 topiramate [Topamax] 50 mg Tablet 50 mg PO BID RF: 0 Referrals: Butch Lynn MD [Non-Staff] -
[2018-09-15] MEDS: ONDANSETRON 4 MG/2 ML INJ IV (17:28)
[2018-09-15] MEDS: PANTOPRAZOLE 40 MG VIAL IV (17:28)
[2018-09-15] MEDS: SODIUM CHLORIDE 0.9% 1,000 ML 1000 ML IV (17:28)
[2018-09-15] MEDS: KETOROLAC 60 MG/2 ML VIAL 30 MG IV (17:28)
[2018-09-15 17:41] LABS: Bacteria Urine None Seen; RBC Urine None Seen (0-5/HPF); WBC Urine None Seen (0-5/HPF)
[2018-09-15 17:55] LABS: Add Manual Diff / Slide Review NO; Basophils Absolute Auto 100 /uL (0-100); Basophils Percent Auto 0.5 % (0-2); Eosinophils Absolute Auto 200 /uL (0-450); Eosinophils Percent Auto 1.9 % (2-4); Hematocrit 44.8 % (36-46); Hemoglobin 15.4 g/dL (12.0-16.0); Lymphocytes Absolute Auto 2900 /uL (1100-4500); Lymphocytes Percent Auto 21.6 % (25-40); Mean Corpuscular HGB Conc 34.3 % (30-36); Mean Corpuscular Hemoglobin 32.5 PG (26-34); Mean Corpuscular Volume 94.9 fL (80-100); Monocytes Absolute Auto 600 /uL (0-900); Monocytes Percent Auto 4.7 % (3-14); Neutrophils Absolute Auto 9400 /uL (1500-7000); Neutrophils Percent Auto 71.3 % (50-75); Platelet Count 267 X10^3/uL (150-400); Red Blood Cell Count 4.72 X10^6/uL (4.0-5.2); White Blood Cell Count 13.2 X10^3/uL (4.5-11.0)
[2018-09-15 18:03] LABS: Amorphous Sediment Urine 3+; Culture Indicated Urine Cult Not Indicated; Squamous Epithelial Cell Urine 1-5 /HPF
[2018-09-15 18:12] LABS: Alanine Aminotransferase 17 IU/L (9-52); Albumin 4.8 g/dL (3.5-5.0); Albumin Globulin Ratio 1.4 (1.0-2.8); Alkaline Phosphatase 58 U/L (38-126); Aspartate Aminotransferase 19 IU/L (14-36); BUN Creatinine Ratio 18.6 (6-22); Bilirubin Total 0.5 mg/dL (0.2-1.3); Blood Urea Nitrogen 13 mg/dL (7-17); Calcium 9.5 mg/dL (8.4-10.2); Carbon Dioxide 23 mmol/L (22-32); Chloride 106 mmol/L (98-107); Estimated Glomerular Filt Rate > 60.0 mL/min (>60); Globulin 3.4 g/dL (1.7-4.1); Glucose 86 mg/dL (70-100); HEMOLYSIS < 15 (0-50); Lipase 186 U/L (23-300); Potassium 3.9 mmol/L (3.4-5.1); Sodium 140 mmol/L (137-145); Total Protein 8.2 g/dL (6.3-8.2)
[2018-09-15 18:38] VITALS: BP 127/77; PULSE 71; RESP 13; O2SAT 99
[2018-09-15 19:02] VITALS: BP 115/80; PULSE 58; RESP 10; O2SAT 98
== END 2018-09-15 19:26 | disposition home or self-care (01) ==
PROVIDERS: Emergency Provider Emergency Medicine
DX: K52.9 Noninfective gastroenteritis and colitis, unspecified (principal)
CPT/HCPCS: 36591; 80053; 81003; 81015; 81025; 83690; 85025; 96361; 96374; 96375; 99283; 99284; C9113; J1885; J2405

== ENCOUNTER 2018-09-19 07:00 | Emergency (ER) | payer SELFPAY ==
[2018-09-19 07:22] VITALS: BP 140/84; PULSE 65; RESP 12; TEMP 36.8; O2SAT 98
--- NOTE | 2018-09-19 07:22 | ED_ITS ---
HPI - Nausea/Vomiting/Diarrhea General Chief complaint: Nausea/Vomiting/Diarrhea Stated complaint: vomiting x1week Time Seen by Provider: 09/19/18 07:22 Source: patient Mode of arrival: ambulatory Limitations: no limitations History of Present Illness HPI Narrative: Patient is a 28-year-old female with a history of epilepsy seen here in the emergency department a couple days ago with nausea vomiting and diarrhea. She was sent home with a prescription for Zofran also for Dilantin. She states that she has been taking Zofran yet despite this she has been having continuous vomiting. She states that her diarrhea has greatly improved. She has been taking her Dilantin. She was told that if her symptoms continue despite the Zofran she needed to return to the emergency department. That is why she is here today. She denies any urinary symptoms no abdominal pain. No recent travel. No recent antibiotic use. Her is with her at bedside and has not had any of these symptoms. She states she has had continued nausea however no vomiting unless she drinks. Related Data Home Medications Medication Instructions Recorded Confirmed gabapentin 100 mg PO TID 09/15/18 09/15/18 phenytoin [Dilantin Infatabs] 50 mg PO TID 09/15/18 09/15/18 topiramate [Topamax] 50 mg PO BID 09/15/18 09/15/18 Previous Rx's Medication Instructions Recorded ondansetron 4 mg PO Q6-8H PRN #10 tab 09/15/18 phenytoin [Dilantin Infatabs] 50 mg PO Q8H #90 tab 09/15/18 metoclopramide HCl [Reglan] 10 mg PO Q6H PRN #14 tab 09/19/18 Allergies Allergy/AdvReac Type Severity Reaction Status Date / Time oxcarbazepine Allergy Verified 09/15/18 16:33 [From Trileptal] Review of Systems Constitutional Denies fever(s), Denies headache(s) and Denies weakness ENT Ears, Nose, Mouth, and Throat: Denies dizziness, Denies headache(s) and Reports disequilibrium Cardiovascular Denies chest pain and Denies dyspnea Respiratory Denies dyspnea Gastrointestinal Gastrointestinal: Denies abdominal pain, Reports diarrhea (However this has improved since her last visit), Reports nausea and Reports vomiting Genitourinary Denies flank pain, Denies urinary urgency and Denies vaginal discharge Musculoskeletal Denies myalgias and Denies arthralgias Integumentary/Breasts Denies lesions and Denies rash Neurologic Denies confusion, Denies dizziness, Denies headache(s), Reports disequilibrium and Denies weakness Psychiatric Denies confusion Hematologic/Lymphatic Comments: Not on anticoagulation Allergic/Immunologic Denies urticaria PFSH Medical History Epilepsy (Acute) PCOS (polycystic ovarian syndrome) (Acute) Social History Smoking Status: Current every day smoker Social History Smoking Status: Current every day smoker Exam Initial Vital Signs Initial Vital Signs: Vital Signs Temperature 98.2 F 09/19/18 07:22 Pulse Rate 65 09/19/18 07:22 Respiratory Rate 12 09/19/18 07:22 Blood Pressure 140/84 09/19/18 07:22 Pulse Oximetry 98 09/19/18 07:22 Const General: cooperative, healthy appearing, comfortable, well developed, well groomed and No acute distress Orientation: alert, awake and oriented x3 HENMT Head: normal to inspection and normocephalic Mouth: oral mucosae normal Resp Effort & Inspection: normal respiratory effort Auscultation: clear to auscultation bilaterally Cardio Rate: regular rate Rhythm: regular rhythm Pulses: radial pulses present GI Inspection: non-distended Palpation: soft, No firm and No tender Back/Spine/Pelvis Back: No CVA tenderness Skin Lesions: no lesions Rashes: no rashes Neuro General: alert, awake and oriented x3 Cognition: normal cognition Speech: speech normal Gait: normal gait Motor: muscle tone normal throughout Extrem General: normal to inspection and capillary refill normal Psych Appearance: grossly normal and well kempt Course Orders Ordered: ED Orders 09/19/18 07:23 Urine Microscopic Stat 09/19/18 07:40 Complete Blood Count AUTO DIFF Stat Comprehensive Metabolic Panel Stat Lipase Stat Test Serum,Qual Stat Discontinued Medications Sodium Chloride (Normal Saline 0.9%) 1,000 mls @ 1,000 mls/hr IV BOLUS ONE Stop: 09/19/18 08:30 Last Admin: 09/19/18 07:59 Dose: 1,000 mls/hr Metoclopramide HCl (Reglan) 10 mg IV NOW ONE Stop: 09/19/18 07:32 Last Admin: 09/19/18 07:58 Dose: 10 mg Vital Signs - 8 hr 09/19/18 07:22 Temperature 98.2 F Pulse Rate 65 Respiratory Rate 12 Blood Pressure 140/84 Pulse Oximetry 98 MDM - Nausea/Vomiting/Diarrhea Lab Data Attestation: I reviewed the patient's lab results. Result diagrams: 09/19/18 07:40 09/19/18 07:40 Lab Results 09/19/18 09/19/18 09/19/18 Range/Units 07:23 07:40 07:40 WBC 8.9 (4.5-11.0) X10^3/uL RBC 4.69 (4.0-5.2) X10^6/uL Hgb 15.1 (12.0-16.0) g/dL Hct 44.4 (36-46) % MCV 94.7 (80-100) fL MCH 32.2 (26-34) PG MCHC 34.0 (30-36) % RDW 13.1 (11.6-14.8) % Plt Count 262 (150-400) X10^3/uL Neut % (Auto) 77.9 H (50-75) % Lymph % (Auto) 16.1 L (25-40) % [place] % (Auto) 4.0 (3-14) % Eos % (Auto) 1.5 L (2-4) % Baso % (Auto) 0.5 (0-2) % Neut # (Auto) 6900 (6347-4890) /uL Lymph # (Auto) 1400 (9402-0481) /uL [place] # (Auto) 400 (0-900) /uL Eos # (Auto) 100 (0-450) /uL Baso # (Auto) 0 (0-100) /uL Sodium 140 (137-145) mmol/L Potassium 4.3 (3.4-5.1) mmol/L Chloride 106 (98-107) mmol/L Carbon Dioxide 22 (22-32) mmol/L BUN 10 (7-17) mg/dL Creatinine 0.80 (0.52-1.04) mg/dL Estimated GFR > 60.0 (>60) mL/min BUN/Creatinine Ratio 12.5 (6-22) Glucose 109 H (70-100) mg/dL Calcium 8.9 (8.4-10.2) mg/dL Total Bilirubin 0.4 (0.2-1.3) mg/dL AST 14 (14-36) IU/L ALT 17 (9-52) IU/L Alkaline Phosphatase 54 (38-126) U/L Total Protein 7.7 (6.3-8.2) g/dL Albumin 4.6 (3.5-5.0) g/dL Globulin 3.1 (1.7-4.1) g/dL Albumin/Globulin Ratio 1.5 (1.0-2.8) Lipase 117 (23-300) U/L Serum , Qual (Negative) Urine RBC 5-10/hpf H (0-5/HPF) Urine WBC None seen (0-5/HPF) Ur Squamous Epith Cells 5-10 /hpf H Urine Bacteria None seen (None) Urine Mucus 1+ H (Negative) Ur Culture Indicated? Cult not indicated 09/19/18 Range/Units 07:40 WBC (4.5-11.0) X10^3/uL RBC (4.0-5.2) X10^6/uL Hgb (12.0-16.0) g/dL Hct (36-46) % MCV (80-100) fL MCH (26-34) PG MCHC (30-36) % RDW (11.6-14.8) % Plt Count (150-400) X10^3/uL Neut % (Auto) (50-75) % Lymph % (Auto) (25-40) % [place] % (Auto) (3-14) % Eos % (Auto) (2-4) % Baso % (Auto) (0-2) % Neut # (Auto) (5858-4216) /uL Lymph # (Auto) (4069-8307) /uL [place] # (Auto) (0-900) /uL Eos # (Auto) (0-450) /uL Baso # (Auto) (0-100) /uL Sodium (137-145) mmol/L Potassium (3.4-5.1) mmol/L Chloride (98-107) mmol/L Carbon Dioxide (22-32) mmol/L BUN (7-17) mg/dL Creatinine (0.52-1.04) mg/dL Estimated GFR (>60) mL/min BUN/Creatinine Ratio (6-22) Glucose (70-100) mg/dL Calcium (8.4-10.2) mg/dL Total Bilirubin (0.2-1.3) mg/dL AST (14-36) IU/L ALT (9-52) IU/L Alkaline Phosphatase (38-126) U/L Total Protein (6.3-8.2) g/dL Albumin (3.5-5.0) g/dL Globulin (1.7-4.1) g/dL Albumin/Globulin Ratio (1.0-2.8) Lipase (23-300) U/L Serum , Qual Negative (Negative) Urine RBC (0-5/HPF) Urine WBC (0-5/HPF) Ur Squamous Epith Cells Urine Bacteria (None) Urine Mucus (Negative) Ur Culture Indicated? Point of Care Testing Test Results Negative Urine Dip Bedside Urine Glucose Negative Bedside Urine Bilirubin - Negative Bedside Urine Ketone - Negative Urine Specific [place] 1.015 Bedside Urine Occult Blood + Bedside Urine pH 7.0 Bedside Urine Protein + 30 Bedside Urine Urobilinogen +/- 1mg Bedside Urine Nitrite - Negative Bedside Urine Leukocytes - Negative Esterase MDM Narrative Medical decision making narrative: The patient has a benign abdomen. Her labs again today are unremarkable. Does not have a white count. She is not clinically dehydrated. Vital signs are unremarkable. Moist membranes. She states that she has been taking her seizure medications since her last visit. She was given a L fluids here in the emergency department. Has no ketones in her urine. Given her benign abdominal exam will hold on radiologic studies for now. Send home with prescription for the Reglan. She was given return precautions. She expressed understanding and agreement with plan. Discharge Plan Departure Patient Disposition: Home Clinical Impression: Nausea & vomiting Instructions: DI for Vomiting -- Adult, Nausea and Vomiting-Adult Activity Restrictions/Additional Instructions: I do recommend that you drink plenty of fluids however do this in small amounts over longer periods of time. Also recommend you eat a bland diet like we discussed. Return to the emergency department for any new or worsening symptoms Prescriptions: New metoclopramide HCl [Reglan] 10 mg tablet 10 mg PO Q6H PRN (Reason: nausea and vomiting) Qty: 14 RF: 0 No Action phenytoin [Dilantin Infatabs] 50 mg Tablet,Chewable 50 mg PO TID RF: 0 gabapentin 100 mg Capsule 100 mg PO TID RF: 0 topiramate [Topamax] 50 mg Tablet 50 mg PO BID RF: 0 ondansetron 4 mg tablet,disintegrating 4 mg PO Q6-8H PRN (Reason: nausea and vomiting) Qty: 10 RF: 0 phenytoin [Dilantin Infatabs] 50 mg tablet,chewable 50 mg PO Q8H Qty: 90 RF: 0
[2018-09-19 07:36] LABS: Bacteria Urine None Seen; WBC Urine None Seen (0-5/HPF)
[2018-09-19 07:42] LABS: RBC Urine 5-10/HPF (0-5/HPF); Squamous Epithelial Cell Urine 5-10 /HPF
[2018-09-19 07:43] LABS: Culture Indicated Urine Cult Not Indicated; Mucus Urine 1+ (Negative)
[2018-09-19 07:53] LABS: Add Manual Diff / Slide Review NO; Basophils Absolute Auto 0 /uL (0-100); Basophils Percent Auto 0.5 % (0-2); Eosinophils Absolute Auto 100 /uL (0-450); Eosinophils Percent Auto 1.5 % (2-4); Hematocrit 44.4 % (36-46); Hemoglobin 15.1 g/dL (12.0-16.0); Lymphocytes Absolute Auto 1400 /uL (1100-4500); Lymphocytes Percent Auto 16.1 % (25-40); Mean Corpuscular Hemoglobin 32.2 PG (26-34); Mean Corpuscular Volume 94.7 fL (80-100); Monocytes Absolute Auto 400 /uL (0-900); Neutrophils Absolute Auto 6900 /uL (1500-7000); Neutrophils Percent Auto 77.9 % (50-75); Platelet Count 262 X10^3/uL (150-400); Red Blood Cell Count 4.69 X10^6/uL (4.0-5.2); Red Cell Distribution Width 13.1 % (11.6-14.8); White Blood Cell Count 8.9 X10^3/uL (4.5-11.0)
[2018-09-19] MEDS: METOCLOPRAMIDE 10 MG/2 ML INJ IV (07:58)
[2018-09-19] MEDS: SODIUM CHLORIDE 0.9% 1,000 ML 1000 ML IV (07:59)
[2018-09-19 08:04] LABS: Alanine Aminotransferase 17 IU/L (9-52); Albumin 4.6 g/dL (3.5-5.0); Albumin Globulin Ratio 1.5 (1.0-2.8); Alkaline Phosphatase 54 U/L (38-126); Aspartate Aminotransferase 14 IU/L (14-36); BUN Creatinine Ratio 12.5 (6-22); Bilirubin Total 0.4 mg/dL (0.2-1.3); Blood Urea Nitrogen 10 mg/dL (7-17); Calcium 8.9 mg/dL (8.4-10.2); Carbon Dioxide 22 mmol/L (22-32); Chloride 106 mmol/L (98-107); Estimated Glomerular Filt Rate > 60.0 mL/min (>60); Globulin 3.1 g/dL (1.7-4.1); Glucose 109 mg/dL (70-100); HEMOLYSIS < 15 (0-50); Lipase 117 U/L (23-300); Potassium 4.3 mmol/L (3.4-5.1); Sodium 140 mmol/L (137-145); Total Protein 7.7 g/dL (6.3-8.2)
[2018-09-19 08:08] LABS: Pregnancy Test Serum,Qual Negative (Negative)
[2018-09-19 09:17] VITALS: BP 140/81; PULSE 88; O2SAT 99
== END 2018-09-19 09:22 | disposition home or self-care (01) ==
PROVIDERS: Emergency Provider Emergency Medicine
DX: R11.2 Nausea with vomiting, unspecified (principal)
CPT/HCPCS: 36591; 80053; 81003; 81015; 81025; 83690; 84703; 85025; 96361; 96374; 99283; 99284; J2765

== ENCOUNTER 2018-11-29 02:11 | Emergency (ER) | payer OTHER, MEDICAID, SELFPAY ==
[2018-11-29 02:32] VITALS: BP 124/79; PULSE 83; RESP 16; TEMP 36.3; O2SAT 99; BMI 29.2
--- NOTE | 2018-11-29 02:35 | ED.PREGNANCY ---
HPI - General Chief complaint: Vaginal Bleeding Stated complaint: 4 weeks /bleeding Time Seen by Provider: 11/29/18 02:22 Source: patient Mode of arrival: ambulatory Limitations: no limitations History of Present Illness HPI Narrative: Patient states she is AG 17 P 1 at 4 weeks EGA here for evaluation of vaginal bleeding. She states that this is her 17th . 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 Not on any control. She thinks that she is approximately 4 weeks EGA. This is based on her last menstrual cycle. Came in because several hours ago she started having vaginal bleeding. She does not know what her blood type is. Related Data Home Medications Medication Instructions Recorded Confirmed gabapentin 100 mg PO TID 09/15/18 09/15/18 phenytoin [Dilantin Infatabs] 50 mg PO TID 09/15/18 09/15/18 topiramate [Topamax] 50 mg PO BID 09/15/18 09/15/18 Previous Rx's Medication Instructions Recorded ondansetron 4 mg PO Q6-8H PRN #10 tab 09/15/18 phenytoin [Dilantin Infatabs] 50 mg PO Q8H #90 tab 09/15/18 metoclopramide HCl [Reglan] 10 mg PO Q6H PRN #14 tab 09/19/18 Allergies Allergy/AdvReac Type Severity Reaction Status Date / Time oxcarbazepine Allergy Verified 09/15/18 16:33 [From Trileptal] Review of Systems Constitutional Denies fever(s) Cardiovascular Denies chest pain and Denies dyspnea Respiratory Denies dyspnea Gastrointestinal Gastrointestinal: Denies abdominal pain, Reports cramping, Denies nausea and Denies vomiting Genitourinary Denies urinary incontinence and Reports vaginal discharge Integumentary/Breasts Denies rash Hematologic/Lymphatic Denies easy bleeding and Denies easy bruising PMFSH - Past Medical History Epilepsy Family history: Reports no significant family history Exam Initial Vital Signs Initial Vital Signs: Vital Signs Temperature 97.3 F L 11/29/18 02:32 Pulse Rate 83 11/29/18 02:32 Respiratory Rate 16 11/29/18 02:32 Blood Pressure 124/79 11/29/18 02:32 Pulse Oximetry 99 11/29/18 02:32 Const General: cooperative, healthy appearing, comfortable, well developed, well groomed and No acute distress Orientation: alert, awake and oriented x3 HENMT Head: normal to inspection and normocephalic Resp Effort & Inspection: normal respiratory effort Cardio Rate: regular rate GI Inspection: non-distended Palpation: soft, No firm and No tender Skin Lesions: no lesions Rashes: no rashes Neuro General: alert, awake and oriented x3 Cognition: normal cognition Speech: speech normal Extrem General: normal to inspection and capillary refill normal Psych Appearance: grossly normal and well kempt Course Orders Ordered: ED Orders 11/29/18 02:41 ABO RH Type Stat HCG Quantitative Stat Vital Signs - 8 hr 11/29/18 02:32 Temperature 97.3 F L Pulse Rate 83 Respiratory Rate 16 Blood Pressure 124/79 Pulse Oximetry 99 MDM - OB/Uterine Contractions Lab Data Attestation: I reviewed the patient's lab results. Lab Results 11/29/18 11/29/18 Range/Units 02:41 02:41 HCG, Quant < 2.39 mIU/mL Blood Type O Positive Point of Care Testing Test Results Negative Urine Dip Bedside Urine Glucose Negative Bedside Urine Bilirubin - Negative Bedside Urine Ketone +/- 5 Urine Specific [place] 1.020 Bedside Urine Occult Blood + Bedside Urine pH 7.0 Bedside Urine Protein - Negative Bedside Urine Urobilinogen - Negative Bedside Urine Nitrite - Negative Bedside Urine Leukocytes - Negative Esterase MDM Narrative Medical decision making narrative: Patient states that she has had 3 positive home test at home over the past couple days. Her test here in the emergency department was negative. Her HCG quantitative was negative as well. She is O-positive. No indication for RhoGAM. Did not obtain a pelvic ultrasound given the negative test. I did discuss this with the patient. She was given follow-up instructions and return precautions. Hold on further workup for now. Informed her that she did need to make contact the primary doctor here in the area. She expressed understanding and agreement with plan. Discharge Plan Departure Patient Disposition: Home Clinical Impression: Miscarriage Instructions: Dealing With Miscarriage, DI for Miscarriage Activity Restrictions/Additional Instructions: Continue all of her medications as instructed. You can call [phone] to help you establish care with a primary doctor here in the area. Return to the emergency department for any new or worsening symptoms Prescriptions: No Action phenytoin [Dilantin Infatabs] 50 mg Tablet,Chewable 50 mg PO TID RF: 0 gabapentin 100 mg Capsule 100 mg PO TID RF: 0 topiramate [Topamax] 50 mg Tablet 50 mg PO BID RF: 0 ondansetron 4 mg tablet,disintegrating 4 mg PO Q6-8H PRN (Reason: nausea and vomiting) Qty: 10 RF: 0 phenytoin [Dilantin Infatabs] 50 mg tablet,chewable 50 mg PO Q8H Qty: 90 RF: 0 metoclopramide HCl [Reglan] 10 mg tablet 10 mg PO Q6H PRN (Reason: nausea and vomiting) Qty: 14 RF: 0
[2018-11-29 03:16] LABS: HCG Quantitative /Beta subunit < 2.39 mIU/mL
[2018-11-29 03:44] VITALS: BP 134/82; PULSE 53; RESP 16; O2SAT 99
== END 2018-11-29 03:45 | disposition home or self-care (01) ==
PROVIDERS: Emergency Provider Emergency Medicine
DX: O03.9 Complete or unspecified spontaneous abortion without complication (principal)
CPT/HCPCS: 36415; 81003; 81025; 84702; 86900; 86901; 99282; 99283

== ENCOUNTER 2019-01-26 21:38 | Emergency (ER) | payer OTHER, MEDICAID, SELFPAY ==
[2019-01-26 21:52] VITALS: BP 133/90; PULSE 82; RESP 20; TEMP 36.6; O2SAT 99; BMI 30.3
--- NOTE | 2019-01-26 22:32 | ED_ITS ---
HPI - Abdominal Pain General Chief Complaint: Abdominal Pain Stated Complaint: POST SURGERY PAIN - GALLBLADDER Time Seen by Provider: 01/26/19 22:20 Source: patient Mode of arrival: ambulatory Limitations: no limitations History of Present Illness HPI narrative: Patient is a 28-year-old female who presents with right upper quadrant pain. She had cholecystectomy January [address] [facility]. She has had intermittent pain since then. She said it was done emergently. She has been seen twice by her surgeons already and still complaining of this pain. She said she has had postop ultrasound and possibly an MRI. She denies any fever. No nausea. No vomiting normal bowel habits. Currently awaiting records MD complaint: abdominal pain Location: RUQ Severity: moderate Quality: stabbing and aching Migration to: no migration Related Data Home Medications Medication Instructions Recorded Confirmed gabapentin 100 mg PO TID 09/15/18 09/15/18 phenytoin [Dilantin Infatabs] 50 mg PO TID 09/15/18 09/15/18 topiramate [Topamax] 50 mg PO BID 09/15/18 09/15/18 Previous Rx's Medication Instructions Recorded ondansetron 4 mg PO Q6-8H PRN #10 tab 09/15/18 phenytoin [Dilantin Infatabs] 50 mg PO Q8H #90 tab 09/15/18 metoclopramide HCl [Reglan] 10 mg PO Q6H PRN #14 tab 09/19/18 Allergies Allergy/AdvReac Type Severity Reaction Status Date / Time oxcarbazepine Allergy Verified 09/15/18 16:33 [From Trileptal] Review of Systems Review of Systems GENERAL: Denies chills, fatigue, malaise, fever, sweats, travel HEENT: Denies sinus pain, ear pain, sore throat, difficulty swallowing, neck pain RESPIRATORY: Denies dyspnea, cough, wheezing, hemoptysis, sputum. CARDIOVASCULAR: Denies chest pain, palpitations, orthopnea, edema GASTROINTESTINAL: See HPI : Denies dysuria, frequency, incontinence, hematuria, urinary retention, flank pain. MUSCULOSKELETAL: Denies weakness, joint pain, or bony pain SKIN: No rash, no erythema, no pruritus NEUROLOGIC: Denies weakness, dizziness, headache, numbness, change in speech, confusion PSYCHIATRIC: No concerning psychosocial issues. 12 point review of systems is negative except for those stated above and HPI [facility] Medical History Epilepsy (Acute) PCOS (polycystic ovarian syndrome) (Acute) Social History Smoking Status: Current every day smoker Social History Smoking Status: Current every day smoker Exam Initial Vital Signs Initial Vital Signs: Vital Signs Temperature 97.9 F 01/26/19 21:52 Pulse Rate 82 01/26/19 21:52 Respiratory Rate 20 01/26/19 21:52 Blood Pressure 133/90 01/26/19 21:52 Pulse Oximetry 99 01/26/19 21:52 GENERAL: Well-appearing, well-nourished and in no acute distress. HEENT: Head atraumatic,EOMI, pupils reactive, face symmetric, moist mucous membranes CARDIOVASCULAR: Regular rate and rhythm without murmurs, rubs or gallops. RESPIRATORY: Breath sounds equal bilaterally, no wheezes rales or rhonchi. ABDOMEN: Soft, mild tenderness right upper quadrant no guarding or rebound incision sites are clean EXTREMITIES: Normal range of motion, no clubbing or edema. Neurovascularly intact NEUROLOGICAL: Alert and oriented x4.Normal gait and speech. Cranial nerves II through XII grossly intact. SKIN: Warm, dry, no laceration, no petechiae, no rashes or lesions. Course Orders Ordered: ED Orders 01/26/19 22:27 CT abdomen pelvis w con Stat 01/26/19 22:35 Complete Blood Count AUTO DIFF Stat Comprehensive Metabolic Panel Stat Lipase Stat Discontinued Medications Hydrocodone Bitart/Acetaminophen (Vicodin Prepack) 1 bottle MISC SEEINSTR ONE Stop: 01/27/19 01:41 Last Admin: 01/27/19 01:45 Dose: 1 bottle Hydromorphone HCl (Dilaudid) 0.5 mg IV NOW ONE Stop: 01/26/19 22:27 Last Admin: 01/26/19 22:43 Dose: 0.5 mg Hydromorphone HCl (Dilaudid) 0.5 mg IV NOW ONE Stop: 01/27/19 00:51 Last Admin: 01/27/19 01:04 Dose: 0.5 mg Sodium Chloride (Normal Saline 0.9%) 1,000 mls @ 1,000 mls/hr IV CONT CYDNEY Last Infusion: 01/27/19 00:37 Dose: 0 mls/hr Admin: 01/26/19 22:43 Dose: 1,000 mls/hr Ketorolac Tromethamine (Toradol) 30 mg IV NOW ONE Stop: 01/27/19 00:51 Last Admin: 01/27/19 01:04 Dose: 30 mg Vital Signs - 8 hr 01/26/19 21:52 01/27/19 01:10 Temperature 97.9 F Pulse Rate 82 60 Respiratory Rate 20 14 Blood Pressure 133/90 Pulse Oximetry 99 96 MDM - Abdominal Pain Medical Records Attestation: I reviewed the patient's medical records. Lab Data Attestation: I reviewed the patient's lab results. Result diagrams: 01/26/19 22:35 01/26/19 22:35 Lab Results 01/26/19 01/26/19 Range/Units 22:35 22:35 WBC 11.7 H (4.5-11.0) X10^3/uL RBC 4.29 (4.0-5.2) X10^6/uL Hgb 14.3 (12.0-16.0) g/dL Hct 40.8 (36-46) % MCV 95.0 (80-100) fL MCH 33.3 (26-34) PG MCHC 35.0 (30-36) % RDW 12.8 (11.6-14.8) % Plt Count 222 (150-400) X10^3/uL Neut % (Auto) 65.2 (50-75) % Lymph % (Auto) 26.4 (25-40) % [place] % (Auto) 4.2 (3-14) % Eos % (Auto) 3.5 (2-4) % Baso % (Auto) 0.7 (0-2) % Neut # (Auto) 7600 H (1590-9853) /uL Lymph # (Auto) 3100 (6801-1154) /uL [place] # (Auto) 500 (0-900) /uL Eos # (Auto) 400 (0-450) /uL Baso # (Auto) 100 (0-100) /uL Sodium 140 (137-145) mmol/L Potassium 3.9 (3.4-5.1) mmol/L Chloride 105 (98-107) mmol/L Carbon Dioxide 26 (22-32) mmol/L BUN 14 (7-17) mg/dL Creatinine 0.60 (0.52-1.04) mg/dL Estimated GFR > 60.0 (>60) mL/min BUN/Creatinine Ratio 23.3 H (6-22) Glucose 93 (70-100) mg/dL Calcium 9.4 (8.4-10.2) mg/dL Total Bilirubin 0.3 (0.2-1.3) mg/dL AST 19 (14-36) IU/L ALT 19 (9-52) IU/L Alkaline Phosphatase 69 (38-126) U/L Total Protein 7.3 (6.3-8.2) g/dL Albumin 4.5 (3.5-5.0) g/dL Globulin 2.8 (1.7-4.1) g/dL Albumin/Globulin Ratio 1.6 (1.0-2.8) Lipase 284 (23-300) U/L MDM Narrative Medical decision making narrative: Initially thought the patient needed CT however reports from [facility] were received and reviewed she had an MRI less than 12 hours ago. At this time patient does not need CT scan. Her pain is much better controlled after Dilaudid. She states that she will talk to her surgeon tomorrow needs pain medication for the night. MR is actually from 01/26/2019 at 2:30 p.m.. Results are as follows. Cholecystectomy a tree amount of free fluid is seen in gallbladder fossa which is nonspecific and most likely secondary to postsurgical seroma. A bili [place] or abscess is felt less likely. No intrahepatic extrahepatic biliary dilatation. No definitive common bile duct stones are identified. Normal MRI appearance of pancreas. Discharge Plan Departure Patient Disposition: Home Clinical Impression: Seroma after procedure Abdominal pain Qualifiers: Abdominal location: right upper quadrant Qualified Code(s): R10.11 - Right upper quadrant pain Discharge Date/Time: 01/27/19 01:47 Interventions: ED Discharge Assessment Last Done: 01/27/19 01:46 Instructions: Acute Abdominal Pain Activity Restrictions/Additional Instructions: *You have been diagnosed with abdominal pain *What to do: You have fluid called a seroma around her gallbladder as seen on the MRI from 01/26/2019. This will likely resolve on its own however I encouraged to discuss this with your surgeon. But this is likely causing your pain. *Continue to take medications as directed Auberry 1 tablet every 6 hours if needed for severe pain *Follow up with your primary care provider in 2-3 days *Return to ER if you should have fever, persistent vomiting or any new, worsening or concerning symptoms CONTROLLED SUBSTANCE DISCHARGE (Narcotoic/benzodiazepine/Flexeril/Phenergan) 1. You have been prescribed narcotic medications, it does have acetaminophen/Tylenol/paracetamol in it so do not take extra Tylenol or Tylenol containing products 2. Please understand that we cannot provide further refills of narcotics, benzodiazepines or controlled substances through the ED and her pain management will need to be through your provider. 3. While on these medications you cannot drive or operate heavy machinery. 4. You cannot sign legal documents or perform any duties such as this. 5. As long as you're taking opiate pain medications he should also be taking a stool softener such as Colace, Dulcolax, MiraLAX or prune juice, to help avoid constipation. Prescriptions: No Action phenytoin [Dilantin Infatabs] 50 mg Tablet,Chewable 50 mg PO TID RF: 0 gabapentin 100 mg Capsule 100 mg PO TID RF: 0 topiramate [Topamax] 50 mg Tablet 50 mg PO BID RF: 0 ondansetron 4 mg tablet,disintegrating 4 mg PO Q6-8H PRN (Reason: nausea and vomiting) Qty: 10 RF: 0 phenytoin [Dilantin Infatabs] 50 mg tablet,chewable 50 mg PO Q8H Qty: 90 RF: 0 metoclopramide HCl [Reglan] 10 mg tablet 10 mg PO Q6H PRN (Reason: nausea and vomiting) Qty: 14 RF: 0 Referrals: Tri Garza MD [Non-Staff] -
[2019-01-26] MEDS: SODIUM CHLORIDE 0.9% 1,000 ML 1000 ML IV (22:43)
[2019-01-26] MEDS: HYDROMORPHONE 1 MG INJ 0.5 MG IV (22:43)
[2019-01-26 22:50] LABS: Add Manual Diff / Slide Review NO; Basophils Absolute Auto 100 /uL (0-100); Basophils Percent Auto 0.7 % (0-2); Eosinophils Absolute Auto 400 /uL (0-450); Eosinophils Percent Auto 3.5 % (2-4); Hematocrit 40.8 % (36-46); Hemoglobin 14.3 g/dL (12.0-16.0); Lymphocytes Absolute Auto 3100 /uL (1100-4500); Lymphocytes Percent Auto 26.4 % (25-40); Mean Corpuscular Hemoglobin 33.3 PG (26-34); Monocytes Absolute Auto 500 /uL (0-900); Monocytes Percent Auto 4.2 % (3-14); Neutrophils Absolute Auto 7600 /uL (1500-7000); Neutrophils Percent Auto 65.2 % (50-75); Platelet Count 222 X10^3/uL (150-400); Red Blood Cell Count 4.29 X10^6/uL (4.0-5.2); Red Cell Distribution Width 12.8 % (11.6-14.8); White Blood Cell Count 11.7 X10^3/uL (4.5-11.0)
[2019-01-26 22:57] LABS: Alanine Aminotransferase 19 IU/L (9-52); Albumin 4.5 g/dL (3.5-5.0); Albumin Globulin Ratio 1.6 (1.0-2.8); Alkaline Phosphatase 69 U/L (38-126); Aspartate Aminotransferase 19 IU/L (14-36); BUN Creatinine Ratio 23.3 (6-22); Bilirubin Total 0.3 mg/dL (0.2-1.3); Blood Urea Nitrogen 14 mg/dL (7-17); Calcium 9.4 mg/dL (8.4-10.2); Carbon Dioxide 26 mmol/L (22-32); Chloride 105 mmol/L (98-107); Estimated Glomerular Filt Rate > 60.0 mL/min (>60); Globulin 2.8 g/dL (1.7-4.1); Glucose 93 mg/dL (70-100); HEMOLYSIS < 15 (0-50); Lipase 284 U/L (23-300); Potassium 3.9 mmol/L (3.4-5.1); Sodium 140 mmol/L (137-145); Total Protein 7.3 g/dL (6.3-8.2)
[2019-01-27] MEDS: KETOROLAC 60 MG/2 ML VIAL 30 MG IV (01:04)
[2019-01-27] MEDS: HYDROMORPHONE 1 MG INJ 0.5 MG IV (01:04)
[2019-01-27 01:10] VITALS: PULSE 60; RESP 14; O2SAT 96
[2019-01-27] MEDS: HYDROCODONE/ACET 5/325 PREPACK 1 BOTTLE MISC (01:45)
== END 2019-01-27 01:47 | disposition home or self-care (01) ==
PROVIDERS: Emergency Provider Emergency Medicine
DX: K91.873 Postprocedural seroma of a digestive system organ or structure following other procedure (principal); R10.11 Right upper quadrant pain
CPT/HCPCS: 36591; 80053; 83690; 85025; 96361; 96374; 96375; 96376; 99283; 99284; J1170; J1885

== ENCOUNTER 2019-02-21 14:39 | Emergency (ER) | payer OTHER, MEDICAID, SELFPAY ==
[2019-02-21 14:52] VITALS: BP 121/78; PULSE 84; RESP 20; TEMP 37; O2SAT 99; BMI 31.1
--- NOTE | 2019-02-21 15:19 | DI.US.S_ITS ---
PROCEDURE: US OB <= 14 WEEKS FETUS INDICATIONS: CRAMPING OUTSIDE/PRIOR DATING DATA: Last menstrual period (LMP): 12/30/18. LMP-based estimated date of delivery (IRIS): 10/06/19. First dating scan (date and location): 02/21/19. Estimated date of delivery (IRIS) from first dating scan: 10/20/19. TECHNIQUE: Real-time scanning was performed of the fetus and maternal pelvic organs, with image documentation. Endovaginal scanning was also performed to better visualize the fetus and maternal ovaries. COMPARISON: None. FINDINGS: Embryo: A single intrauterine gestational sac is identified. A yolk sac is evident. However, a pole is not yet seen. The mean gestational sac diameter is 8 mm, which correlates with an estimated gestational age of 5 weeks 4 days. No subchorionic hemorrhage is evident. Maternal organs: Ovaries demonstrates a corpus luteum on the right. Limited images through the kidneys demonstrate no hydronephrosis. IMPRESSION: 1. Intrauterine is identified. However, a pole is not yet seen. Correlation with beta hCG levels is recommended. Followup imaging in one to 2 weeks may be helpful to evaluate for viability. 2. Estimated gestational age based on the size of the gestational sac is 5 weeks 4 days. Dictated by: Jose Luis Wilder M.D. on 02/21/2019 at 15:35 Approved by: Jose Luis Wilder M.D. on 02/21/2019 at 15:38
[2019-02-21 15:44] LABS: Add Manual Diff / Slide Review NO; Basophils Absolute Auto 0 /uL (0-100); Basophils Percent Auto 0.4 % (0-2); Eosinophils Absolute Auto 300 /uL (0-450); Eosinophils Percent Auto 2.8 % (2-4); Hematocrit 39.4 % (36-46); Hemoglobin 13.6 g/dL (12.0-16.0); Lymphocytes Absolute Auto 2200 /uL (1100-4500); Lymphocytes Percent Auto 22.3 % (25-40); Mean Corpuscular HGB Conc 34.5 % (30-36); Mean Corpuscular Hemoglobin 33.2 PG (26-34); Mean Corpuscular Volume 96.3 fL (80-100); Monocytes Absolute Auto 500 /uL (0-900); Monocytes Percent Auto 4.8 % (3-14); Neutrophils Absolute Auto 7000 /uL (1500-7000); Neutrophils Percent Auto 69.7 % (50-75); Platelet Count 210 X10^3/uL (150-400); Red Cell Distribution Width 12.7 % (11.6-14.8); White Blood Cell Count 10.1 X10^3/uL (4.5-11.0)
[2019-02-21 15:54] LABS: Alanine Aminotransferase 20 IU/L (9-52); Albumin 4.1 g/dL (3.5-5.0); Albumin Globulin Ratio 1.5 (1.0-2.8); Alkaline Phosphatase 59 U/L (38-126); Aspartate Aminotransferase 15 IU/L (14-36); Bilirubin Total 0.3 mg/dL (0.2-1.3); Blood Urea Nitrogen 9 mg/dL (7-17); Calcium 8.8 mg/dL (8.4-10.2); Carbon Dioxide 22 mmol/L (22-32); Chloride 109 mmol/L (98-107); Estimated Glomerular Filt Rate > 60.0 mL/min (>60); Globulin 2.8 g/dL (1.7-4.1); Glucose 98 mg/dL (70-100); HEMOLYSIS < 15 (0-50); Potassium 3.8 mmol/L (3.4-5.1); Sodium 139 mmol/L (137-145); Total Protein 6.9 g/dL (6.3-8.2)
[2019-02-21 16:11] LABS: HCG Quantitative /Beta subunit 9267.5 mIU/mL
[2019-02-21 17:04] LABS: Bacteria Urine Occasional (0-1); Culture Indicated Urine Cult Not Indicated; RBC Urine 0-1/HPF (0-5/HPF); Squamous Epithelial Cell Urine 0-1 /HPF (0-5/HPF); WBC Urine 0-1/HPF (0-5/HPF)
[2019-02-21 17:42] VITALS: BP 110/80; PULSE 65; RESP 14; O2SAT 97
--- NOTE | 2019-02-21 19:14 | ED.PREGNANCY ---
HPI - <HERMINIA Wheatley-BC - Last Filed: 02/21/19 19:19> General Chief complaint: OB/Uterine Contractions Stated complaint: 7 wks prg. cramping, history of miscarriges Time Seen by Provider: 02/21/19 15:05 Source: patient Mode of arrival: ambulatory Limitations: no limitations History of Present Illness HPI Narrative: The patient is a 29-year-old female with history of seizures who presents with a chief complaint of lower abdominal pain and cramping during . She states she is about 7 weeks . She started having cramping yesterday, has currently got worse. She denies any vaginal bleeding or vaginal discharge. She states any fevers, constant abdominal pain, does have some frequency but no urgency. She feels as though she cannot empty her bladder. No chest pain, shortness of breath. Related Data Home Medications Medication Instructions Recorded Confirmed gabapentin 100 mg PO TID 09/15/18 09/15/18 phenytoin [Dilantin Infatabs] 50 mg PO TID 09/15/18 09/15/18 topiramate [Topamax] 50 mg PO BID 09/15/18 09/15/18 Previous Rx's Medication Instructions Recorded ondansetron 4 mg PO Q6-8H PRN #10 tab 09/15/18 phenytoin [Dilantin Infatabs] 50 mg PO Q8H #90 tab 09/15/18 metoclopramide HCl [Reglan] 10 mg PO Q6H PRN #14 tab 09/19/18 cephalexin [Keflex] 500 mg PO BID #20 cap 02/21/19 Allergies Allergy/AdvReac Type Severity Reaction Status Date / Time oxcarbazepine Allergy Verified 02/21/19 14:57 [From Trileptal] Review of Systems <LARISA Wheatley - Last Filed: 02/21/19 19:19> Review of Systems GENERAL: Denies chills, fatigue, malaise, fever, sweats. HEENT: Denies sinus pain, ear pain, sore throat, difficulty swallowing, dizziness. RESPIRATORY: Denies dyspnea, cough, wheezing, hemoptysis, sputum. CARDIOVASCULAR: Denies chest pain, palpitations, orthopnea, edema, GASTROINTESTINAL: Denies nausea, vomiting, abdominal pain, diarrhea, constipation, melena. : See HPI MUSCULOSKELETAL: denies weakness, joint pain, or bony pain SKIN: Denies rash, skin lesions, or other NEUROLOGIC: Denies weakness, headache, numbness, change in speech, confusion, seizures, incoordination. PSYCHIATRIC: No concerning psychosocial issues. 12 point review of systems is negative except for those stated above PMFSH - <HERMINIA Wheatley- - Last Filed: 02/21/19 19:19> Past Medical History Epilepsy Family history: Reports no significant family history Exam <HERMINIA Wheatley-NABEEL - Last Filed: 02/21/19 19:19> Narrative Exam Narrative: GENERAL: This is a well-nourished, well-developed patient, in acute distress lying on stretcher HEAD: Atraumatic. Normocephalic. No temporal or scalp tenderness. EYES: Pupils equal round and reactive. Extraocular motions intact. No scleral icterus. No injection or drainage. ENT: Nose without bleeding, purulent drainage or septal hematoma. Throat without erythema, tonsillar hypertrophy or exudate. Uvula midline. Airway patent. NECK: Trachea midline. No JVD or lymphadenopathy. Supple, nontender, no meningeal signs. CARDIOVASCULAR: Regular rate and rhythm without murmurs, gallops, or rubs. RESPIRATORY: Clear to auscultation. Breath sounds equal bilaterally. No wheezes, rales, or rhonchi. GASTROINTESTINAL: Abdomen soft, non-tender, nondistended. No hepato-splenomegaly, or palpable masses. No guarding. Active bowel sounds all 4 quadrants. No tenderness to palpation. Nonrigid abdomen. EXTREMITIES: No clubbing, cyanosis, or edema. No joint tenderness, effusion, or edema noted. BACK: Nontender without deformity or crepitance. No flank tenderness. NEURO: AOx3. SKIN: No rash or erythema. Initial Vital Signs Initial Vital Signs: Vital Signs Temperature 98.6 F 02/21/19 14:52 Pulse Rate 84 02/21/19 14:52 Respiratory Rate 20 02/21/19 14:52 Blood Pressure 121/78 02/21/19 14:52 Pulse Oximetry 99 02/21/19 14:52 <Laxmi Arias DO - Last Filed: 02/22/19 07:37> Initial Vital Signs Initial Vital Signs: Vital Signs Temperature 98.6 F 02/21/19 14:52 Pulse Rate 84 02/21/19 14:52 Respiratory Rate 20 02/21/19 14:52 Blood Pressure 121/78 02/21/19 14:52 Pulse Oximetry 99 02/21/19 14:52 Course <CESAR Wheatley - Last Filed: 02/21/19 19:19> Orders Ordered: ED Orders 02/21/19 15:19 US OB <= 14 weeks fetus Stat 02/21/19 15:35 Complete Blood Count AUTO DIFF Stat Comprehensive Metabolic Panel Stat HCG Quantitative Stat 02/21/19 16:45 Urine Microscopic Stat Vital Signs - 8 hr 02/21/19 14:52 02/21/19 17:42 Temperature 98.6 F Pulse Rate 84 65 Respiratory Rate 20 14 Blood Pressure 121/78 Blood Pressure [Left Arm] 110/80 Pulse Oximetry 99 97 <Laxmi Arias DO - Last Filed: 02/22/19 07:37> Orders Ordered: ED Orders 02/21/19 15:19 US OB <= 14 weeks fetus Stat 02/21/19 15:35 Complete Blood Count AUTO DIFF Stat Comprehensive Metabolic Panel Stat HCG Quantitative Stat 02/21/19 16:45 Urine Microscopic Stat Vital Signs - 8 hr 02/21/19 14:52 02/21/19 17:42 Temperature 98.6 F Pulse Rate 84 65 Respiratory Rate 20 14 Blood Pressure 121/78 Blood Pressure [Left Arm] 110/80 Pulse Oximetry 99 97 MDM - OB/Uterine Contractions <CESAR Wheatley - Last Filed: 02/21/19 19:19> Lab Data Result diagrams: 02/21/19 15:35 02/21/19 15:35 Lab Results 02/21/19 02/21/19 02/21/19 Range/Units 15:35 15:35 16:45 WBC 10.1 (4.5-11.0) X10^3/uL RBC 4.10 (4.0-5.2) X10^6/uL Hgb 13.6 (12.0-16.0) g/dL Hct 39.4 (36-46) % MCV 96.3 (80-100) fL MCH 33.2 (26-34) PG MCHC 34.5 (30-36) % RDW 12.7 (11.6-14.8) % Plt Count 210 (150-400) X10^3/uL Neut % (Auto) 69.7 (50-75) % Lymph % (Auto) 22.3 L (25-40) % Esmeralda % (Auto) 4.8 (3-14) % Eos % (Auto) 2.8 (2-4) % Baso % (Auto) 0.4 (0-2) % Neut # (Auto) 7000 (8793-6754) /uL Lymph # (Auto) 2200 (6627-3066) /uL Esmeralda # (Auto) 500 (0-900) /uL Eos # (Auto) 300 (0-450) /uL Baso # (Auto) 0 (0-100) /uL Sodium 139 (137-145) mmol/L Potassium 3.8 (3.4-5.1) mmol/L Chloride 109 H (98-107) mmol/L Carbon Dioxide 22 (22-32) mmol/L BUN 9 (7-17) mg/dL Creatinine 0.50 L (0.52-1.04) mg/dL Estimated GFR > 60.0 (>60) mL/min BUN/Creatinine Ratio 18.0 (6-22) Glucose 98 (70-100) mg/dL Calcium 8.8 (8.4-10.2) mg/dL Total Bilirubin 0.3 (0.2-1.3) mg/dL AST 15 (14-36) IU/L ALT 20 (9-52) IU/L Alkaline Phosphatase 59 (38-126) U/L Total Protein 6.9 (6.3-8.2) g/dL Albumin 4.1 (3.5-5.0) g/dL Globulin 2.8 (1.7-4.1) g/dL Albumin/Globulin Ratio 1.5 (1.0-2.8) HCG, Quant 9267.5 mIU/mL Urine RBC 0-1/hpf (0-5/HPF) Urine WBC 0-1/hpf (0-5/HPF) Ur Squamous Epith Cells 0-1 /hpf (0-5/HPF) Urine Bacteria Occasional (0-1) (None) Ur Culture Indicated? Cult not indicated Point of Care Testing Test Results Positive Urine Dip Bedside Urine Glucose Negative Bedside Urine Bilirubin - Negative Bedside Urine Ketone - Negative Urine Specific [place] 1.015 Bedside Urine Occult Blood +/- Bedside Urine pH 6 Bedside Urine Protein - Negative Bedside Urine Urobilinogen - Negative Bedside Urine Nitrite - Negative Bedside Urine Leukocytes - Negative Esterase Imaging Data ultrasound: Radiologist's impression: [address] [address] Ultrasound Report Signed Patient: Flores Sorensen NMR#: [id number] : 1990Acct:[id number] Age/Sex: 29 / FDate of Service: 02/21/19 Loc: ED Accession Number: [id number] Procedure: US OB <= 14 weeks fetus Ordering Provider: Laxmi Ortega-BC PROCEDURE: US OB <= 14 WEEKS FETUS INDICATIONS: CRAMPING OUTSIDE/PRIOR DATING DATA: Last menstrual period (LMP): 12/30/18. LMP-based estimated date of delivery (IRIS): 10/06/19. First dating scan (date and location): 02/21/19. Estimated date of delivery (IRIS) from first dating scan: 10/20/19. TECHNIQUE: Real-time scanning was performed of the fetus and maternal pelvic organs, with image documentation. Endovaginal scanning was also performed to better visualize the fetus and maternal ovaries. COMPARISON: None. FINDINGS: Embryo: A single intrauterine gestational sac is identified. A yolk sac is evident. However, a pole is not yet seen. The mean gestational sac diameter is 8 mm, which correlates with an estimated gestational age of 5 weeks 4 days. No subchorionic hemorrhage is evident. Maternal organs: Ovaries demonstrates a corpus luteum on the right. Limited images through the kidneys demonstrate no hydronephrosis. IMPRESSION: 1. Intrauterine is identified. However, a pole is not yet seen. Correlation with beta hCG levels is recommended. Followup imaging in one to 2 weeks may be helpful to evaluate for viability. 2. Estimated gestational age based on the size of the gestational sac is 5 weeks 4 days. Dictated by: Jose Luis Wilder M.D. on 02/21/2019 at 15:35 Approved by: Jose Luis Wilder M.D. on 02/21/2019 at 15:38 MDM Narrative Medical decision making narrative: The patient is a 29-year-old female presents with a chief complaint of cramping during . Urinalysis shows bacteria in her urine. Thus I will treat her with cephalexin, which she has taken before and is safe in . Otherwise her ultrasound shows 5 week and she is nontender to palpation. I discussed at length follow up with her primary care OB, monitoring for any return precautions such as that of severe abdominal pain, etc. Patient has no questions or concerns upon discharge. <Laxmi Carol Ann Arias, DO - Last Filed: 02/22/19 07:37> Lab Data Lab Results 02/21/19 02/21/19 02/21/19 Range/Units 15:35 15:35 16:45 WBC 10.1 (4.5-11.0) X10^3/uL RBC 4.10 (4.0-5.2) X10^6/uL Hgb 13.6 (12.0-16.0) g/dL Hct 39.4 (36-46) % MCV 96.3 (80-100) fL MCH 33.2 (26-34) PG MCHC 34.5 (30-36) % RDW 12.7 (11.6-14.8) % Plt Count 210 (150-400) X10^3/uL Neut % (Auto) 69.7 (50-75) % Lymph % (Auto) 22.3 L (25-40) % Esmeralda % (Auto) 4.8 (3-14) % Eos % (Auto) 2.8 (2-4) % Baso % (Auto) 0.4 (0-2) % Neut # (Auto) 7000 (4280-1182) /uL Lymph # (Auto) 2200 (5763-9731) /uL Esmeralda # (Auto) 500 (0-900) /uL Eos # (Auto) 300 (0-450) /uL Baso # (Auto) 0 (0-100) /uL Sodium 139 (137-145) mmol/L Potassium 3.8 (3.4-5.1) mmol/L Chloride 109 H (98-107) mmol/L Carbon Dioxide 22 (22-32) mmol/L BUN 9 (7-17) mg/dL Creatinine 0.50 L (0.52-1.04) mg/dL Estimated GFR > 60.0 (>60) mL/min BUN/Creatinine Ratio 18.0 (6-22) Glucose 98 (70-100) mg/dL Calcium 8.8 (8.4-10.2) mg/dL Total Bilirubin 0.3 (0.2-1.3) mg/dL AST 15 (14-36) IU/L ALT 20 (9-52) IU/L Alkaline Phosphatase 59 (38-126) U/L Total Protein 6.9 (6.3-8.2) g/dL Albumin 4.1 (3.5-5.0) g/dL Globulin 2.8 (1.7-4.1) g/dL Albumin/Globulin Ratio 1.5 (1.0-2.8) HCG, Quant 9267.5 mIU/mL Urine RBC 0-1/hpf (0-5/HPF) Urine WBC 0-1/hpf (0-5/HPF) Ur Squamous Epith Cells 0-1 /hpf (0-5/HPF) Urine Bacteria Occasional (0-1) (None) Ur Culture Indicated? Cult not indicated Point of Care Testing Test Results Positive Urine Dip Bedside Urine Glucose Negative Bedside Urine Bilirubin - Negative Bedside Urine Ketone - Negative Urine Specific [place] 1.015 Bedside Urine Occult Blood +/- Bedside Urine pH 6 Bedside Urine Protein - Negative Bedside Urine Urobilinogen - Negative Bedside Urine Nitrite - Negative Bedside Urine Leukocytes - Negative Esterase Discharge Plan Departure Patient Disposition: Home Clinical Impression: UTI (urinary tract infection) during Qualifiers: Trimester: first trimester Qualified Code(s): O23.41 - Unspecified infection of urinary tract in , first trimester Discharge Date/Time: 02/21/19 17:57 Interventions: ED Discharge Assessment Last Done: 02/21/19 17:57 Instructions: DI for Urinary Tract Infection (UTI), DI for Abdominal Pain -- Early Activity Restrictions/Additional Instructions: You have had some bacteria in her urine so we have elected to treat you for urinary tract infection. Please follow up with primary care provider as well as your OB. Urine culture is pending at this time. Please come back to the emergency department for any acute concerns such as in the keep down fluids, high fever etc. Prescriptions: New cephalexin [Keflex] 500 mg capsule 500 mg PO BID Qty: 20 RF: 0 No Action phenytoin [Dilantin Infatabs] 50 mg Tablet,Chewable 50 mg PO TID RF: 0 gabapentin 100 mg Capsule 100 mg PO TID RF: 0 topiramate [Topamax] 50 mg Tablet 50 mg PO BID RF: 0 ondansetron 4 mg tablet,disintegrating 4 mg PO Q6-8H PRN (Reason: nausea and vomiting) Qty: 10 RF: 0 phenytoin [Dilantin Infatabs] 50 mg tablet,chewable 50 mg PO Q8H Qty: 90 RF: 0 metoclopramide HCl [Reglan] 10 mg tablet 10 mg PO Q6H PRN (Reason: nausea and vomiting) Qty: 14 RF: 0 <Laxmi Arias DO - Last Filed: 02/22/19 07:37> Cosign ED Attending Cosignature Attestation: I was immediately available in the department for consultation. This documentation has been reviewed and I agree with assessment and plan. Supervised by Laxmi Arias DO
--- NOTE | 2019-02-21 19:19 | ED_ITS ---
HPI - <HERMINIA Wheatley-BC - Last Filed: 02/21/19 19:19> General Chief complaint: OB/Uterine Contractions Stated complaint: 7 wks prg. cramping, history of miscarriges Time Seen by Provider: 02/21/19 15:05 Source: patient Mode of arrival: ambulatory Limitations: no limitations History of Present Illness HPI Narrative: The patient is a 29-year-old female with history of seizures who presents with a chief complaint of lower abdominal pain and cramping during . She states she is about 7 weeks . She started having cramping yesterday, has currently got worse. She denies any vaginal bleeding or vaginal discharge. She states any fevers, constant abdominal pain, does have some frequency but no urgency. She feels as though she cannot empty her bladder. No chest pain, shortness of breath. Related Data Home Medications Medication Instructions Recorded Confirmed gabapentin 100 mg PO TID 09/15/18 09/15/18 phenytoin [Dilantin Infatabs] 50 mg PO TID 09/15/18 09/15/18 topiramate [Topamax] 50 mg PO BID 09/15/18 09/15/18 Previous Rx's Medication Instructions Recorded ondansetron 4 mg PO Q6-8H PRN #10 tab 09/15/18 phenytoin [Dilantin Infatabs] 50 mg PO Q8H #90 tab 09/15/18 metoclopramide HCl [Reglan] 10 mg PO Q6H PRN #14 tab 09/19/18 cephalexin [Keflex] 500 mg PO BID #20 cap 02/21/19 Allergies Allergy/AdvReac Type Severity Reaction Status Date / Time oxcarbazepine Allergy Verified 02/21/19 14:57 [From Trileptal] Review of Systems <LARISA Wheatley - Last Filed: 02/21/19 19:19> Review of Systems GENERAL: Denies chills, fatigue, malaise, fever, sweats. HEENT: Denies sinus pain, ear pain, sore throat, difficulty swallowing, dizziness. RESPIRATORY: Denies dyspnea, cough, wheezing, hemoptysis, sputum. CARDIOVASCULAR: Denies chest pain, palpitations, orthopnea, edema, GASTROINTESTINAL: Denies nausea, vomiting, abdominal pain, diarrhea, constipation, melena. : See HPI MUSCULOSKELETAL: denies weakness, joint pain, or bony pain SKIN: Denies rash, skin lesions, or other NEUROLOGIC: Denies weakness, headache, numbness, change in speech, confusion, seizures, incoordination. PSYCHIATRIC: No concerning psychosocial issues. 12 point review of systems is negative except for those stated above PMFSH - <HERMINIA Wheatley- - Last Filed: 02/21/19 19:19> Past Medical History Epilepsy Family history: Reports no significant family history Exam <CESAR Wheatley - Last Filed: 02/21/19 19:19> Narrative Exam Narrative: GENERAL: This is a well-nourished, well-developed patient, in acute distress lying on stretcher HEAD: Atraumatic. Normocephalic. No temporal or scalp tenderness. EYES: Pupils equal round and reactive. Extraocular motions intact. No scleral icterus. No injection or drainage. ENT: Nose without bleeding, purulent drainage or septal hematoma. Throat without erythema, tonsillar hypertrophy or exudate. Uvula midline. Airway patent. NECK: Trachea midline. No JVD or lymphadenopathy. Supple, nontender, no menin geal signs. CARDIOVASCULAR: Regular rate and rhythm without murmurs, gallops, or rubs. RESPIRATORY: Clear to auscultation. Breath sounds equal bilaterally. No wheezes, rales, or rhonchi. GASTROINTESTINAL: Abdomen soft, non-tender, nondistended. No hepato- splenomegaly, or palpable masses. No guarding. Active bowel sounds all 4 quadrants. No tenderness to palpation. Nonrigid abdomen. EXTREMITIES: No clubbing, cyanosis, or edema. No joint tenderness, effusion, or edema noted. BACK: Nontender without deformity or crepitance. No flank tenderness. NEURO: AOx3. SKIN: No rash or erythema. Initial Vital Signs Initial Vital Signs: Vital Signs Temperature 98.6 F 02/21/19 14:52 Pulse Rate 84 02/21/19 14:52 Respiratory Rate 20 02/21/19 14:52 Blood Pressure 121/78 02/21/19 14:52 Pulse Oximetry 99 02/21/19 14:52 <Laxmi Arias DO - Last Filed: 02/22/19 07:37> Initial Vital Signs Initial Vital Signs: Vital Signs Temperature 98.6 F 02/21/19 14:52 Pulse Rate 84 02/21/19 14:52 Respiratory Rate 20 02/21/19 14:52 Blood Pressure 121/78 02/21/19 14:52 Pulse Oximetry 99 02/21/19 14:52 Course <CESAR Wheatley - Last Filed: 02/21/19 19:19> Orders Ordered: ED Orders 02/21/19 15:19 US OB <= 14 weeks fetus Stat 02/21/19 15:35 Complete Blood Count AUTO DIFF Stat Comprehensive Metabolic Panel Stat HCG Quantitative Stat 02/21/19 16:45 Urine Microscopic Stat Vital Signs - 8 hr 02/21/19 14:52 02/21/19 17:42 Temperature 98.6 F Pulse Rate 84 65 Respiratory Rate 20 14 Blood Pressure 121/78 Blood Pressure [Left Arm] 110/80 Pulse Oximetry 99 97 <Laxmi Arias DO - Last Filed: 02/22/19 07:37> Orders Ordered: ED Orders 02/21/19 15:19 US OB <= 14 weeks fetus Stat 02/21/19 15:35 Complete Blood Count AUTO DIFF Stat Comprehensive Metabolic Panel Stat HCG Quantitative Stat 02/21/19 16:45 Urine Microscopic Stat Vital Signs - 8 hr 02/21/19 14:52 02/21/19 17:42 Temperature 98.6 F Pulse Rate 84 65 Respiratory Rate 20 14 Blood Pressure 121/78 Blood Pressure [Left Arm] 110/80 Pulse Oximetry 99 97 MDM - OB/Uterine Contractions <CESAR Wheatley - Last Filed: 02/21/19 19:19> Lab Data Result diagrams: 02/21/19 15:35 02/21/19 15:35 Lab Results 02/21/19 02/21/19 02/21/19 Range/Units 15:35 15:35 16:45 WBC 10.1 (4.5-11.0) X10^3/uL RBC 4.10 (4.0-5.2) X10^6/uL Hgb 13.6 (12.0-16.0) g/dL Hct 39.4 (36-46) % MCV 96.3 (80-100) fL MCH 33.2 (26-34) PG MCHC 34.5 (30-36) % RDW 12.7 (11.6-14.8) % Plt Count 210 (150-400) X10^3/uL Neut % (Auto) 69.7 (50-75) % Lymph % (Auto) 22.3 L (25-40) % [place] % (Auto) 4.8 (3-14) % Eos % (Auto) 2.8 (2-4) % Baso % (Auto) 0.4 (0-2) % Neut # (Auto) 7000 (4014-9034) /uL Lymph # (Auto) 2200 (9789-2188) /uL [place] # (Auto) 500 (0-900) /uL Eos # (Auto) 300 (0-450) /uL Baso # (Auto) 0 (0-100) /uL Sodium 139 (137-145) mmol/L Potassium 3.8 (3.4-5.1) mmol/L Chloride 109 H (98-107) mmol/L Carbon Dioxide 22 (22-32) mmol/L BUN 9 (7-17) mg/dL Creatinine 0.50 L (0.52-1.04) mg/dL Estimated GFR > 60.0 (>60) mL/min BUN/Creatinine Ratio 18.0 (6-22) Glucose 98 (70-100) mg/dL Calcium 8.8 (8.4-10.2) mg/dL Total Bilirubin 0.3 (0.2-1.3) mg/dL AST 15 (14-36) IU/L ALT 20 (9-52) IU/L Alkaline Phosphatase 59 (38-126) U/L Total Protein 6.9 (6.3-8.2) g/dL Albumin 4.1 (3.5-5.0) g/dL Globulin 2.8 (1.7-4.1) g/dL Albumin/Globulin Ratio 1.5 (1.0-2.8) HCG, Quant 9267.5 mIU/mL Urine RBC 0-1/hpf (0-5/HPF) Urine WBC 0-1/hpf (0-5/HPF) Ur Squamous Epith Cells 0-1 /hpf (0-5/HPF) Urine Bacteria Occasional (0-1) (None) Ur Culture Indicated? Cult not indicated Point of Care Testing Test Results Positive Urine Dip Bedside Urine Glucose Negative Bedside Urine Bilirubin - Negative Bedside Urine Ketone - Negative Urine Specific [place] 1.015 Bedside Urine Occult Blood +/- Bedside Urine pH 6 Bedside Urine Protein - Negative Bedside Urine Urobilinogen - Negative Bedside Urine Nitrite - Negative Bedside Urine Leukocytes - Negative Esterase Imaging Data ultrasound: Radiologist's impression: [address] [address] Ultrasound Report Signed Patient: Flores Sorensen [facility]#: [id number] : 1990Acct:[id number] Age/Sex: 29 / FDate of Service: 02/21/19 Loc: ED Accession Number: [id number] Procedure: US OB <= 14 weeks fetus Ordering Provider: Laxmi Ortega-NABEEL PROCEDURE: US OB <= 14 WEEKS FETUS INDICATIONS: CRAMPING OUTSIDE/PRIOR DATING DATA: Last menstrual period (LMP): 12/30/18. LMP-based estimated date of delivery (IRIS): 10/06/19. First dating scan (date and location): 02/21/19. Estimated date of delivery (IRIS) from first dating scan: 10/20/19. TECHNIQUE: Real-time scanning was performed of the fetus and maternal pelvic organs, with image documentation. Endovaginal scanning was also performed to better visualize the fetus and maternal ovaries. COMPARISON: None. FINDINGS: Embryo: A single intrauterine gestational sac is identified. A yolk sac is evident. However, a pole is not yet seen. The mean gestational sac diameter is 8 mm, which correlates with an estimated gestational age of 5 weeks 4 days. No subchorionic hemorrhage is evident. Maternal organs: Ovaries demonstrates a corpus luteum on the right. Limited images through the kidneys demonstrate no hydronephrosis. IMPRESSION: 1. Intrauterine is identified. However, a pole is not yet seen. Correlation with beta hCG levels is recommended. Followup imaging in one to 2 weeks may be helpful to evaluate for viability. 2. Estimated gestational age based on the size of the gestational sac is 5 weeks 4 days. Dictated by: Jose Luis Wilder M.D. on 02/21/2019 at 15:35 Approved by: Jose Luis Wilder M.D. on 02/21/2019 at 15:38 MDM Narrative Medical decision making narrative: The patient is a 29-year-old female presents with a chief complaint of cramping during . Urinalysis shows bacteria in her urine. Thus I will treat her with cephalexin, which she has taken before and is safe in . Otherwise her ultrasound shows 5 week and she is nontender to palpation. I discussed at length follow up with her primary care OB, monitoring for any return precautions such as that of severe abdominal pain, etc. Patient has no questions or concerns upon discharge. <Laxmi Carol Ann Arias, DO - Last Filed: 02/22/19 07:37> Lab Data Lab Results 02/21/19 02/21/19 02/21/19 Range/Units 15:35 15:35 16:45 WBC 10.1 (4.5-11.0) X10^3/uL RBC 4.10 (4.0-5.2) X10^6/uL Hgb 13.6 (12.0-16.0) g/dL Hct 39.4 (36-46) % MCV 96.3 (80-100) fL MCH 33.2 (26-34) PG MCHC 34.5 (30-36) % RDW 12.7 (11.6-14.8) % Plt Count 210 (150-400) X10^3/uL Neut % (Auto) 69.7 (50-75) % Lymph % (Auto) 22.3 L (25-40) % [place] % (Auto) 4.8 (3-14) % Eos % (Auto) 2.8 (2-4) % Baso % (Auto) 0.4 (0-2) % Neut # (Auto) 7000 (1165-8513) /uL Lymph # (Auto) 2200 (2423-4947) /uL [place] # (Auto) 500 (0-900) /uL Eos # (Auto) 300 (0-450) /uL Baso # (Auto) 0 (0-100) /uL Sodium 139 (137-145) mmol/L Potassium 3.8 (3.4-5.1) mmol/L Chloride 109 H (98-107) mmol/L Carbon Dioxide 22 (22-32) mmol/L BUN 9 (7-17) mg/dL Creatinine 0.50 L (0.52-1.04) mg/dL Estimated GFR > 60.0 (>60) mL/min BUN/Creatinine Ratio 18.0 (6-22) Glucose 98 (70-100) mg/dL Calcium 8.8 (8.4-10.2) mg/dL Total Bilirubin 0.3 (0.2-1.3) mg/dL AST 15 (14-36) IU/L ALT 20 (9-52) IU/L Alkaline Phosphatase 59 (38-126) U/L Total Protein 6.9 (6.3-8.2) g/dL Albumin 4.1 (3.5-5.0) g/dL Globulin 2.8 (1.7-4.1) g/dL Albumin/Globulin Ratio 1.5 (1.0-2.8) HCG, Quant 9267.5 mIU/mL Urine RBC 0-1/hpf (0-5/HPF) Urine WBC 0-1/hpf (0-5/HPF) Ur Squamous Epith Cells 0-1 /hpf (0-5/HPF) Urine Bacteria Occasional (0-1) (None) Ur Culture Indicated? Cult not indicated Point of Care Testing Test Results Positive Urine Dip Bedside Urine Glucose Negative Bedside Urine Bilirubin - Negative Bedside Urine Ketone - Negative Urine Specific [place] 1.015 Bedside Urine Occult Blood +/- Bedside Urine pH 6 Bedside Urine Protein - Negative Bedside Urine Urobilinogen - Negative Bedside Urine Nitrite - Negative Bedside Urine Leukocytes - Negative Esterase Discharge Plan Departure Patient Disposition: Home Clinical Impression: UTI (urinary tract infection) during Qualifiers: Trimester: first trimester Qualified Code(s): O23.41 - Unspecified infection of urinary tract in , first trimester Discharge Date/Time: 02/21/19 17:57 Interventions: ED Discharge Assessment Last Done: 02/21/19 17:57 Instructions: DI for Urinary Tract Infection (UTI), DI for Abdominal Pain -- Early Activity Restrictions/Additional Instructions: You have had some bacteria in her urine so we have elected to treat you for urinary tract infection. Please follow up with primary care provider as well as your OB. Urine culture is pending at this time. Please come back to the emergency department for any acute concerns such as in the keep down fluids, high fever etc. Prescriptions: New cephalexin [Keflex] 500 mg capsule 500 mg PO BID Qty: 20 RF: 0 No Action phenytoin [Dilantin Infatabs] 50 mg Tablet,Chewable 50 mg PO TID RF: 0 gabapentin 100 mg Capsule 100 mg PO TID RF: 0 topiramate [Topamax] 50 mg Tablet 50 mg PO BID RF: 0 ondansetron 4 mg tablet,disintegrating 4 mg PO Q6-8H PRN (Reason: nausea and vomiting) Qty: 10 RF: 0 phenytoin [Dilantin Infatabs] 50 mg tablet,chewable 50 mg PO Q8H Qty: 90 RF: 0 metoclopramide HCl [Reglan] 10 mg tablet 10 mg PO Q6H PRN (Reason: nausea and vomiting) Qty: 14 RF: 0 <Laxmi Arias DO - Last Filed: 02/22/19 07:37> Cosign ED Attending Cosignature Attestation: I was immediately available in the department for consultation. This documentation has been reviewed and I agree with assessment and plan. Supervised by Laxmi Arias DO
== END 2019-02-21 17:57 | disposition home or self-care (01) ==
PROVIDERS: Emergency Provider Nurse Practitioner Family
DX: O23.41 Unspecified infection of urinary tract in pregnancy, first trimester (principal); Z3A.01 Less than 8 weeks gestation of pregnancy
CPT/HCPCS: 36415; 76801; 76817; 80053; 81003; 81015; 81025; 84702; 85025; 99282; 99284

== ENCOUNTER 2019-02-25 18:13 | Emergency (ER) | payer OTHER, MEDICAID, SELFPAY ==
[2019-02-25 18:39] VITALS: BP 124/77; PULSE 96; RESP 18; TEMP 37.6; O2SAT 100
--- NOTE | 2019-02-25 18:45 | DI.US.S_ITS ---
PROCEDURE: US OB <= 14 WEEKS FETUS INDICATIONS: PAIN, BLEEDING OUTSIDE/PRIOR DATING DATA: Last menstrual period (LMP): 12/30/18. LMP-based estimated date of delivery (IRIS): 10/06/19. First dating scan (date and location): 02/21/19. Estimated date of delivery (IRIS) from first dating scan: 10/20/19. TECHNIQUE: Real-time scanning was performed of the fetus and maternal pelvic organs, with image documentation. Endovaginal scanning was also performed to better visualize the fetus and maternal ovaries. COMPARISON: [facility], , US OB <= 14 WEEKS FETUS, 02/21/2019, 16:01. FINDINGS: Embryo: Single intrauterine with ultrasound gestational age of 6 weeks zero days correspond to crown-rump length of 4 mm. heart rate is identified at 112 beats per minute. Estimated gestational age from an initial ultrasound of 6 weeks one day. Maternal organs: Ovaries demonstrate a corpus little cyst on the right.. Limited images through the kidneys demonstrate no hydronephrosis. IMPRESSION: 1. Single intrauterine with ultrasound gestational age of 6 weeks 0 days compared to 6 weeks one day from initial ultrasound. Ultrasound IRIS is 10/20/19. 2. Recommend followup imaging at 20-22 weeks for dates and anatomy. Dictated by: Xi Rushing M.D. on 02/25/2019 at 20:05 Approved by: Xi Rushing M.D. on 02/25/2019 at 20:07
--- NOTE | 2019-02-25 18:55 | ED.PREGNANCY ---
HPI - General Chief complaint: Urogenital-Female Stated complaint: 6 WEEKS AND BLEEDING Time Seen by Provider: 02/25/19 18:35 Source: patient Mode of arrival: ambulatory Limitations: no limitations History of Present Illness HPI Narrative: 29-year-old female G 20 P1 at 7 weeks presents with dark vaginal spotting and some pelvic cramping for the past few days. She was seen and evaluated a few days ago with a chief complaint of cramping and was found to have a urinary tract infection for which she has been treated. She denies any significant bleeding, and is certainly not saturating a pad per hour. She is not dizzy nor weak or lightheaded. She denies any fever or shaking chills. Patient had an ultrasound a few days ago noting an intrauterine . b HCG on 02/21/19 was 9267.5 Complaint: vaginal bleeding Onset (ago): day(s) Pain Consistency: intermittent Location: pelvis Severity: mild Quality: Cramping Relieving factors: none Exacerbating factors: none Associated symptoms: vaginal bleeding Vaginal bleeding: light Patient : Yes OB History - Current : other (cramping and UTI) OB History - Previous Pregnancies: miscarriage care: none Related Data : 20 Para: 1 Total number of abortions (spontaneous and elective): 18 Home Medications Medication Instructions Recorded Confirmed gabapentin 100 mg PO TID 09/15/18 09/15/18 phenytoin [Dilantin Infatabs] 50 mg PO TID 09/15/18 09/15/18 topiramate [Topamax] 50 mg PO BID 09/15/18 09/15/18 Previous Rx's Medication Instructions Recorded ondansetron 4 mg PO Q6-8H PRN #10 tab 09/15/18 phenytoin [Dilantin Infatabs] 50 mg PO Q8H #90 tab 09/15/18 metoclopramide HCl [Reglan] 10 mg PO Q6H PRN #14 tab 09/19/18 cephalexin [Keflex] 500 mg PO BID #20 cap 02/21/19 Allergies Allergy/AdvReac Type Severity Reaction Status Date / Time oxcarbazepine Allergy Verified 02/21/19 14:57 [From Trileptal] Review of Systems Constitutional Denies chills, Denies fever(s), Denies lethargy and Denies weakness Eyes Denies change in vision, Denies eye discharge, Denies irritation and Denies loss of vision ENT Ears, Nose, Mouth, and Throat: Denies change in voice, Denies neck pain and Denies sore throat Cardiovascular Denies chest pain, Denies irregular heart rhythm, Denies lightheadedness, Denies palpitations, Denies dyspnea, Denies dyspnea on exertion and Denies orthopnea Respiratory Denies cough, Denies dyspnea, Denies dyspnea on exertion and Denies wheezing Gastrointestinal Gastrointestinal: Denies abdominal pain, Denies change in bowel habits, Denies diarrhea, Denies nausea and Denies vomiting Genitourinary Denies hematuria, Reports pelvic pain, Denies flank pain, Denies urinary incontinence and Denies urinary urgency Musculoskeletal Denies neck pain Integumentary/Breasts Denies pruritus, Denies erythema, Denies rash and Denies wounds Neurologic Denies confusion, Denies loss of vision and Denies weakness Psychiatric Denies anxiety, Denies confusion, Denies depression, Denies homicidal ideation and Denies suicidal ideation Endocrine Denies palpitations Hematologic/Lymphatic Denies easy bruising Allergic/Immunologic Denies wheezing PMFSH - Past Medical History Epilepsy Patient : Yes Family history: Reports no significant family history Exam Narrative Exam Narrative: GENERAL: This is a well-nourished, well-developed patient, in mild distress. HEAD: Atraumatic. Normocephalic. No temporal or scalp tenderness. EYES: Pupils equal round and reactive. Extraocular motions intact. No scleral icterus. No injection or drainage. ENT: Nose without bleeding, purulent drainage or septal hematoma. Throat without erythema, tonsillar hypertrophy or exudate. Uvula midline. Airway patent. NECK: Trachea midline. No JVD or lymphadenopathy. Supple, nontender, no meningeal signs. CARDIOVASCULAR: Regular rate and rhythm without murmurs, gallops, or rubs. RESPIRATORY: Clear to auscultation. Breath sounds equal bilaterally. No wheezes, rales, or rhonchi. GASTROINTESTINAL: Abdomen soft, non-tender, nondistended. No hepato-splenomegaly, or palpable masses. No guarding. EXTREMITIES: No clubbing, cyanosis, or edema. No joint tenderness, effusion, or edema noted. BACK: Nontender without deformity or crepitance. No flank tenderness. NEURO: AOx3. SKIN: No rash or erythema. Initial Vital Signs Initial Vital Signs: Vital Signs Temperature 99.6 F 02/25/19 18:39 Pulse Rate 96 H 02/25/19 18:39 Respiratory Rate 18 02/25/19 18:39 Blood Pressure 124/77 02/25/19 18:39 Pulse Oximetry 100 02/25/19 18:39 Course Orders Ordered: ED Orders 02/25/19 19:00 HCG Quantitative Stat Hemoglobin and Hematocrit Stat 02/25/19 19:45 Urine Culture Stat Urine Microscopic Stat Vital Signs - 8 hr 02/25/19 19:52 Pulse Rate 71 Blood Pressure 108/68 Pulse Oximetry 97 MDM - OB/Uterine Contractions Lab Data Result diagrams: 02/25/19 19:00 Lab Results 02/25/19 02/25/19 02/25/19 Range/Units 19:00 19:00 19:45 Hgb 13.2 (12.0-16.0) g/dL Hct 39.2 (36-46) % HCG, Quant 22176 mIU/mL Urine RBC 5-10/hpf H (0-5/HPF) Urine WBC 5-10/hpf H (0-5/HPF) Ur Squamous Epith Cells 0-1 /hpf (0-5/HPF) Urine Bacteria Moderate (10-30) H (None) Urine Mucus 1+ H (Negative) Ur Culture Indicated? Specimen cultured Urine Dip Bedside Urine Glucose Negative Bedside Urine Ketone +/- 5 Urine Specific [place] 1.030 Bedside Urine Occult Blood ++ Bedside Urine pH 5.5 Bedside Urine Protein +/- 15 Bedside Urine Urobilinogen +/- 1mg Bedside Urine Nitrite - Negative Bedside Urine Leukocytes +/- 15 Esterase Imaging Data US - abdomen: Radiologist's impression: [place] [address] Ultrasound Report Signed Patient: Flores Sorensen [facility]#: [id number] : 1990Acct:[id number] Age/Sex: 29 / FDate of Service: 02/25/19 Loc: ED Accession Number: [id number] Procedure: US OB <= 14 weeks fetus Ordering Provider: Bal Goodman D.O. PROCEDURE: US OB <= 14 WEEKS FETUS INDICATIONS: PAIN, BLEEDING OUTSIDE/PRIOR DATING DATA: Last menstrual period (LMP): 12/30/18. LMP-based estimated date of delivery (IRIS): 10/06/19. First dating scan (date and location): 02/21/19. Estimated date of delivery (IRIS) from first dating scan: 10/20/19. TECHNIQUE: Real-time scanning was performed of the fetus and maternal pelvic organs, with image documentation. Endovaginal scanning was also performed to better visualize the fetus and maternal ovaries. COMPARISON: [facility], US, US OB <= 14 WEEKS FETUS, 02/21/2019, 16:01. FINDINGS: Embryo: Single intrauterine with ultrasound gestational age of 6 weeks zero days correspond to crown-rump length of 4 mm. heart rate is identified at 112 beats per minute. Estimated gestational age from an initial ultrasound of 6 weeks one day. Maternal organs: Ovaries demonstrate a corpus little cyst on the right.. Limited images through the kidneys demonstrate no hydronephrosis. IMPRESSION: 1. Single intrauterine with ultrasound gestational age of 6 weeks 0 days compared to 6 weeks one day from initial ultrasound. Ultrasound IRIS is 10/20/19. 2. Recommend followup imaging at 20-22 weeks for dates and anatomy. Dictated by: Xi Rushing M.D. on 02/25/2019 at 20:05 Approved by: Xi Rushing M.D. on 02/25/2019 at 20:07 Discharge Plan Departure Patient Disposition: Home Clinical Impression: Vaginal bleeding affecting early , Threatened in first trimester UTI (urinary tract infection) during Qualifiers: Trimester: first trimester Qualified Code(s): O23.41 - Unspecified infection of urinary tract in , first trimester Discharge Date/Time: 02/25/19 19:53 Interventions: ED Discharge Assessment Last Done: 02/25/19 19:52 Instructions: DI for Vaginal Bleeding During Activity Restrictions/Additional Instructions: *You have been diagnosed with [ vaginal bleeding in early ] *What to do: * continue tot june medications as directed *Follow up with your primary care provider in 2-3 days, call for an appointment. Let them know you were seen in the Emergency Department and that we ask that you be seen in follow up *Return to ER if you should have any new, worsening or concerning symptoms, such as [dizziness, weakness, increased bleeding, vaginal pain or other bothersome symptoms ] Prescriptions: No Action phenytoin [Dilantin Infatabs] 50 mg Tablet,Chewable 50 mg PO TID RF: 0 gabapentin 100 mg Capsule 100 mg PO TID RF: 0 topiramate [Topamax] 50 mg Tablet 50 mg PO BID RF: 0 ondansetron 4 mg tablet,disintegrating 4 mg PO Q6-8H PRN (Reason: nausea and vomiting) Qty: 10 RF: 0 phenytoin [Dilantin Infatabs] 50 mg tablet,chewable 50 mg PO Q8H Qty: 90 RF: 0 metoclopramide HCl [Reglan] 10 mg tablet 10 mg PO Q6H PRN (Reason: nausea and vomiting) Qty: 14 RF: 0 cephalexin [Keflex] 500 mg capsule 500 mg PO BID Qty: 20 RF: 0 Referrals: Estela Jaramillo MD [Physician] -
[2019-02-25 19:06] LABS: Hematocrit 39.2 % (36-46); Hemoglobin 13.2 g/dL (12.0-16.0)
[2019-02-25 19:52] VITALS: BP 108/68; PULSE 71; O2SAT 97
[2019-02-25 19:57] LABS: Bacteria Urine Moderate (10-30); Mucus Urine 1+ (Negative); RBC Urine 5-10/HPF (0-5/HPF); Squamous Epithelial Cell Urine 0-1 /HPF (0-5/HPF); WBC Urine 5-10/HPF (0-5/HPF)
[2019-02-25 19:58] LABS: Culture Indicated Urine Specimen Cultured
[2019-02-25 19:59] LABS: HCG Quantitative /Beta subunit 22101 mIU/mL
== END 2019-02-25 19:53 | disposition home or self-care (01) ==
PROVIDERS: Emergency Provider Emergency Medicine
DX: O20.8 Other hemorrhage in early pregnancy (principal); O23.41 Unspecified infection of urinary tract in pregnancy, first trimester; O20.0 Threatened abortion; Z3A.01 Less than 8 weeks gestation of pregnancy
CPT/HCPCS: 36415; 76801; 76817; 81003; 81015; 84702; 85014; 85018; 87086; 99282; 99283

== ENCOUNTER 2019-03-27 12:23 | Emergency (ER) | payer OTHER, MEDICAID, SELFPAY ==
[2019-03-27 12:45] VITALS: PULSE 94; RESP 18; TEMP 36.9; O2SAT 99
[2019-03-27 14:47] LABS: Bacteria Urine None Seen
[2019-03-27 15:01] LABS: Amorphous Sediment Urine 1+; Culture Indicated Urine Cult Not Indicated; Mucus Urine 1+ (Negative); RBC Urine 5-10/HPF (0-5/HPF); Squamous Epithelial Cell Urine 0-1 /HPF (0-5/HPF); WBC Urine 0-1/HPF (0-5/HPF)
--- NOTE | 2019-03-27 15:33 | DI.US.S_ITS ---
PROCEDURE: US OB <= 14 WEEKS FETUS INDICATIONS: PELVIC PAIN TECHNIQUE: Real-time scanning was performed of the fetus and maternal pelvic organs, with image documentation. Endovaginal scanning was also performed to better visualize the fetus and maternal ovaries. COMPARISON: None. FINDINGS: Embryo: A single live intrauterine is identified with heart motion detected at 175 beats per minute. A pole is well-visualized, which has a crown-rump length that measures 3.7 cm (10 weeks 4 days). No subchorionic hemorrhage is identified. Given the early gestational age, anatomic details are not adequately evaluated. Maternal organs: Ovaries are not enlarged. The maternal cervix is closed. Limited images through the kidneys demonstrate no hydronephrosis. IMPRESSION: 1. Single live intrauterine at 10 weeks 4 days (current IRIS 10/19/19). This is concordant with the dates from the previous ultrasound. There has been appropriate interval growth. 2. No subchorionic hemorrhage. Dictated by: Jose Luis Wilder M.D. on 03/27/2019 at 15:54 Approved by: Jose Luis Wilder M.D. on 03/27/2019 at 15:56
[2019-03-27 16:47] VITALS: BP 119/78; PULSE 70; RESP 18; O2SAT 100
--- NOTE | 2019-03-28 08:05 | ED.PREGNANCY ---
HPI - General Chief complaint: Urogenital-Female Stated complaint: 11 weeks ob having cramping x3 day/no ob dr Time Seen by Provider: 03/27/19 12:44 Source: patient Mode of arrival: ambulatory Limitations: no limitations History of Present Illness HPI Narrative: 29-year-old female GA 18 P 1 at 11 weeks without care presents with a day or 2 of bilateral lower pelvic cramping. She denies per provocation or palliation nor radiation. She denies vaginal bleeding or discharge. She denies dysuria, frequency or urgency. She has had no fever or chills. She denies any injury or trauma. This is her 4th visit in the past month under similar circumstances. Patient has recently been connected with a highway traffic control technician and is in the process of getting her first complete visit. MD Complaint: abdominal pain Onset (ago): week(s) Pain Consistency: intermittent Location: pelvis Severity: mild Quality: Cramping Relieving factors: none Exacerbating factors: none Associated symptoms: denies other symptoms Vaginal discharge: none Vaginal bleeding: none Patient : Yes OB History - Current : no complications OB History - Previous Pregnancies: miscarriage care: none Related Data Home Medications Medication Instructions Recorded Confirmed gabapentin 100 mg PO TID 09/15/18 09/15/18 phenytoin [Dilantin Infatabs] 50 mg PO TID 09/15/18 09/15/18 topiramate [Topamax] 50 mg PO BID 09/15/18 09/15/18 Previous Rx's Medication Instructions Recorded ondansetron 4 mg PO Q6-8H PRN #10 tab 09/15/18 phenytoin [Dilantin Infatabs] 50 mg PO Q8H #90 tab 09/15/18 metoclopramide HCl [Reglan] 10 mg PO Q6H PRN #14 tab 09/19/18 cephalexin [Keflex] 500 mg PO BID #20 cap 02/21/19 Allergies Allergy/AdvReac Type Severity Reaction Status Date / Time oxcarbazepine Allergy Verified 02/21/19 14:57 [From Trileptal] Review of Systems Constitutional Denies chills, Denies fever(s), Denies lethargy and Denies weakness Eyes Denies change in vision, Denies eye discharge, Denies irritation and Denies loss of vision ENT Ears, Nose, Mouth, and Throat: Denies change in voice, Denies neck pain and Denies sore throat Cardiovascular Denies chest pain, Denies irregular heart rhythm, Denies lightheadedness, Denies palpitations, Denies dyspnea, Denies dyspnea on exertion and Denies orthopnea Respiratory Denies cough, Denies dyspnea, Denies dyspnea on exertion and Denies wheezing Gastrointestinal Gastrointestinal: Denies abdominal pain, Denies change in bowel habits, Denies diarrhea, Denies nausea and Denies vomiting Genitourinary Denies hematuria, Reports pelvic pain, Denies flank pain, Denies urinary incontinence and Denies urinary urgency Musculoskeletal Denies neck pain Integumentary/Breasts Denies pruritus, Denies erythema, Denies rash and Denies wounds Neurologic Denies confusion, Denies loss of vision and Denies weakness Psychiatric Denies anxiety, Denies confusion, Denies depression, Denies homicidal ideation and Denies suicidal ideation Endocrine Denies palpitations Hematologic/Lymphatic Denies easy bruising Allergic/Immunologic Denies wheezing PMFSH - Past Medical History Epilepsy Patient : Yes Family history: Reports no significant family history Exam Narrative Exam Narrative: GEN: AOx3 and in mild distress EYES: Pupils are equal, round, and reactive to light and accommodation. Extraoccular muscles are intact bilaterally. There is no subconjunctival hemorrhage or exudate. CHEST: Lungs are clear to auscultation bilaterally and free of wheezes, rales, or rhonchi. Heart rate is regular rhythm, there are no murmurs, clicks, rubs, or gallops. There is no chest wall tenderness. ABD: Abdomen is soft and nontender. There is no guarding or rebound. Bowel sounds are normal in all 4 quadrants. There is no mass or organomegaly. EXT: Full painless ROM of all extremities with no loss of sensation or strength. SKIN: Warm, pink, and dry. No erythema or rash Initial Vital Signs Initial Vital Signs: Vital Signs Temperature 98.5 F 03/27/19 12:45 Pulse Rate 94 H 03/27/19 12:45 Respiratory Rate 18 03/27/19 12:45 Pulse Oximetry 99 03/27/19 12:45 MDM - OB/Uterine Contractions Lab Data Lab Results 03/27/19 Range/Units 14:30 Urine RBC 5-10/hpf H (0-5/HPF) Urine WBC 0-1/hpf (0-5/HPF) Ur Squamous Epith Cells 0-1 /hpf (0-5/HPF) Amorphous Sediment 1+ Urine Bacteria None seen (None) Urine Mucus 1+ H (Negative) Ur Culture Indicated? Cult not indicated Point of Care Testing Test Results Positive Urine Dip Bedside Urine Glucose Negative Bedside Urine Bilirubin - Negative Bedside Urine Ketone +/- 5 Urine Specific [place] 1.020 Bedside Urine Occult Blood +++ Bedside Urine pH 6.5 Bedside Urine Protein +/- 15 Bedside Urine Urobilinogen - Negative Bedside Urine Nitrite - Negative Bedside Urine Leukocytes - Negative Esterase Imaging Data US - abdomen: Radiologist's impression: [address] [address] Ultrasound Report Signed Patient: Flores Sorensen [facility]#: [id number] : 1990Acct:[id number] Age/Sex: 29 / FDate of Service: 03/27/19 Loc: ED Accession Number: [id number] Procedure: US OB <= 14 weeks fetus Ordering Provider: Bal Goodman D.O. PROCEDURE: US OB <= 14 WEEKS FETUS INDICATIONS: PELVIC PAIN TECHNIQUE: Real-time scanning was performed of the fetus and maternal pelvic organs, with image documentation. Endovaginal scanning was also performed to better visualize the fetus and maternal ovaries. COMPARISON: None. FINDINGS: Embryo: A single live intrauterine is identified with heart motion detected at 175 beats per minute. A pole is well-visualized, which has a crown-rump length that measures 3.7 cm (10 weeks 4 days). No subchorionic hemorrhage is identified. Given the early gestational age, anatomic details are not adequately evaluated. Maternal organs: Ovaries are not enlarged. The maternal cervix is closed. Limited images through the kidneys demonstrate no hydronephrosis. IMPRESSION: 1. Single live intrauterine at 10 weeks 4 days (current [facility]IS 10/19/19). This is concordant with the dates from the previous ultrasound. There has been appropriate interval growth. 2. No subchorionic hemorrhage. Dictated by: Jose Luis Wilder M.D. on 03/27/2019 at 15:54 Approved by: Jose Luis Wilder M.D. on 03/27/2019 at 15:5 Discharge Plan Departure Patient Disposition: Home Clinical Impression: Pelvic cramping Discharge Date/Time: 03/27/19 16:51 Interventions: ED Discharge Assessment Last Done: 03/27/19 16:50 Instructions: DI for Pelvic Pain Activity Restrictions/Additional Instructions: *You have been diagnosed with [pelvic cramping and ] *What to do: * continue to take medications as directed *Follow up with your primary care provider in 2-3 days, call for an appointment. Let them know you were seen in the Emergency Department and that we ask that you be seen in follow up *Return to ER if you should have any new, worsening or concerning symptoms Prescriptions: No Action phenytoin [Dilantin Infatabs] 50 mg Tablet,Chewable 50 mg PO TID RF: 0 gabapentin 100 mg Capsule 100 mg PO TID RF: 0 topiramate [Topamax] 50 mg Tablet 50 mg PO BID RF: 0 ondansetron 4 mg tablet,disintegrating 4 mg PO Q6-8H PRN (Reason: nausea and vomiting) Qty: 10 RF: 0 phenytoin [Dilantin Infatabs] 50 mg tablet,chewable 50 mg PO Q8H Qty: 90 RF: 0 metoclopramide HCl [Reglan] 10 mg tablet 10 mg PO Q6H PRN (Reason: nausea and vomiting) Qty: 14 RF: 0 cephalexin [Keflex] 500 mg capsule 500 mg PO BID Qty: 20 RF: 0
--- NOTE | 2019-03-28 08:08 | ED_ITS ---
HPI - General Chief complaint: Urogenital-Female Stated complaint: 11 weeks ob having cramping x3 day/no ob dr Time Seen by Provider: 03/27/19 12:44 Source: patient Mode of arrival: ambulatory Limitations: no limitations History of Present Illness HPI Narrative: 29-year-old female GA 18 P 1 at 11 weeks without care presents with a day or 2 of bilateral lower pelvic cramping. She denies per provocation or palliation nor radiation. She denies vaginal bleeding or discharge. She denies dysuria, frequency or urgency. She has had no fever or chills. She denies any injury or trauma. This is her 4th visit in the past month under similar circumstances. Patient has recently been connected with a highway painter and is in the process of getting her first complete visit. MD Complaint: abdominal pain Onset (ago): week(s) Pain Consistency: intermittent Location: pelvis Severity: mild Quality: Cramping Relieving factors: none Exacerbating factors: none Associated symptoms: denies other symptoms Vaginal discharge: none Vaginal bleeding: none Patient : Yes OB History - Current : no complications OB History - Previous Pregnancies: miscarriage care: none Related Data Home Medications Medication Instructions Recorded Confirmed gabapentin 100 mg PO TID 09/15/18 09/15/18 phenytoin [Dilantin Infatabs] 50 mg PO TID 09/15/18 09/15/18 topiramate [Topamax] 50 mg PO BID 09/15/18 09/15/18 Previous Rx's Medication Instructions Recorded ondansetron 4 mg PO Q6-8H PRN #10 tab 09/15/18 phenytoin [Dilantin Infatabs] 50 mg PO Q8H #90 tab 09/15/18 metoclopramide HCl [Reglan] 10 mg PO Q6H PRN #14 tab 09/19/18 cephalexin [Keflex] 500 mg PO BID #20 cap 02/21/19 Allergies Allergy/AdvReac Type Severity Reaction Status Date / Time oxcarbazepine Allergy Verified 02/21/19 14:57 [From Trileptal] Review of Systems Constitutional Denies chills, Denies fever(s), Denies lethargy and Denies weakness Eyes Denies change in vision, Denies eye discharge, Denies irritation and Denies loss of vision ENT Ears, Nose, Mouth, and Throat: Denies change in voice, Denies neck pain and D enies sore throat Cardiovascular Denies chest pain, Denies irregular heart rhythm, Denies lightheadedness, Denies palpitations, Denies dyspnea, Denies dyspnea on exertion and Denies orthopnea Respiratory Denies cough, Denies dyspnea, Denies dyspnea on exertion and Denies wheezing Gastrointestinal Gastrointestinal: Denies abdominal pain, Denies change in bowel habits, Denies diarrhea, Denies nausea and Denies vomiting Genitourinary Denies hematuria, Reports pelvic pain, Denies flank pain, Denies urinary incontinence and Denies urinary urgency Musculoskeletal Denies neck pain Integumentary/Breasts Denies pruritus, Denies erythema, Denies rash and Denies wounds Neurologic Denies confusion, Denies loss of vision and Denies weakness Psychiatric Denies anxiety, Denies confusion, Denies depression, Denies homicidal ideation and Denies suicidal ideation Endocrine Denies palpitations Hematologic/Lymphatic Denies easy bruising Allergic/Immunologic Denies wheezing PMFSH - Past Medical History Epilepsy Patient : Yes Family history: Reports no significant family history Exam Narrative Exam Narrative: GEN: AOx3 and in mild distress EYES: Pupils are equal, round, and reactive to light and accommodation. Extraoccular muscles are intact bilaterally. There is no subconjunctival hemorrhage or exudate. CHEST: Lungs are clear to auscultation bilaterally and free of wheezes, rales, or rhonchi. Heart rate is regular rhythm, there are no murmurs, clicks, rubs, or gallops. There is no chest wall tenderness. ABD: Abdomen is soft and nontender. There is no guarding or rebound. Bowel sounds are normal in all 4 quadrants. There is no mass or organomegaly. EXT: Full painless ROM of all extremities with no loss of sensation or strength. SKIN: Warm, pink, and dry. No erythema or rash Initial Vital Signs Initial Vital Signs: Vital Signs Temperature 98.5 F 03/27/19 12:45 Pulse Rate 94 H 03/27/19 12:45 Respiratory Rate 18 03/27/19 12:45 Pulse Oximetry 99 03/27/19 12:45 MDM - OB/Uterine Contractions Lab Data Lab Results 03/27/19 Range/Units 14:30 Urine RBC 5-10/hpf H (0-5/HPF) Urine WBC 0-1/hpf (0-5/HPF) Ur Squamous Epith Cells 0-1 /hpf (0-5/HPF) Amorphous Sediment 1+ Urine Bacteria None seen (None) Urine Mucus 1+ H (Negative) Ur Culture Indicated? Cult not indicated Point of Care Testing Test Results Positive Urine Dip Bedside Urine Glucose Negative Bedside Urine Bilirubin - Negative Bedside Urine Ketone +/- 5 Urine Specific [place] 1.020 Bedside Urine Occult Blood +++ Bedside Urine pH 6.5 Bedside Urine Protein +/- 15 Bedside Urine Urobilinogen - Negative Bedside Urine Nitrite - Negative Bedside Urine Leukocytes - Negative Esterase Imaging Data US - abdomen: Radiologist's impression: [address] [address] Ultrasound Report Signed Patient: Flores Sorensen [facility]#: [id number] : 1990Acct:[id number] Age/Sex: 29 / FDate of Service: 03/27/19 Loc: ED Accession Number: [id number] Procedure: US OB <= 14 weeks fetus Ordering Provider: Bal Goodman D.O. PROCEDURE: US OB <= 14 WEEKS FETUS INDICATIONS: PELVIC PAIN TECHNIQUE: Real-time scanning was performed of the fetus and maternal pelvic organs, with image documentation. Endovaginal scanning was also performed to better visualize the fetus and maternal ovaries. COMPARISON: None. FINDINGS: Embryo: A single live intrauterine is identified with heart motion detected at 175 beats per minute. A pole is well-visualized, which has a crown-rump length that measures 3.7 cm (10 weeks 4 days). No subchorionic hemorrhage is identified. Given the early gestational age, anatomic details are not adequately evaluated. Maternal organs: Ovaries are not enlarged. The maternal cervix is closed. Limited images through the kidneys demonstrate no hydronephrosis. IMPRESSION: 1. Single live intrauterine at 10 weeks 4 days (current [facility]IS 10/19/19). This is concordant with the dates from the previous ultrasound. There has been appropriate interval growth. 2. No subchorionic hemorrhage. Dictated by: Jose Luis Wilder M.D. on 03/27/2019 at 15:54 Approved by: Jose Luis Wilder M.D. on 03/27/2019 at 15:5 Discharge Plan Departure Patient Disposition: Home Clinical Impression: Pelvic cramping Discharge Date/Time: 03/27/19 16:51 Interventions: ED Discharge Assessment Last Done: 03/27/19 16:50 Instructions: DI for Pelvic Pain Activity Restrictions/Additional Instructions: *You have been diagnosed with [pelvic cramping and ] *What to do: * continue to take medications as directed *Follow up with your primary care provider in 2-3 days, call for an appointment. Let them know you were seen in the Emergency Department and that we ask that you be seen in follow up *Return to ER if you should have any new, worsening or concerning symptoms Prescriptions: No Action phenytoin [Dilantin Infatabs] 50 mg Tablet,Chewable 50 mg PO TID RF: 0 gabapentin 100 mg Capsule 100 mg PO TID RF: 0 topiramate [Topamax] 50 mg Tablet 50 mg PO BID RF: 0 ondansetron 4 mg tablet,disintegrating 4 mg PO Q6-8H PRN (Reason: nausea and vomiting) Qty: 10 RF: 0 phenytoin [Dilantin Infatabs] 50 mg tablet,chewable 50 mg PO Q8H Qty: 90 RF: 0 metoclopramide HCl [Reglan] 10 mg tablet 10 mg PO Q6H PRN (Reason: nausea and vomiting) Qty: 14 RF: 0 cephalexin [Keflex] 500 mg capsule 500 mg PO BID Qty: 20 RF: 0
== END 2019-03-27 16:51 | disposition home or self-care (01) ==
PROVIDERS: Emergency Provider Emergency Medicine
DX: O26.91 Pregnancy related conditions, unspecified, first trimester (principal); R10.2 Pelvic and perineal pain; Z3A.11 11 weeks gestation of pregnancy
CPT/HCPCS: 76801; 76817; 81003; 81015; 81025; 99282; 99283

== ENCOUNTER 2019-05-19 12:11 | Emergency (ER) | payer OTHER, MEDICAID, SELFPAY ==
[2019-05-19 12:41] VITALS: BP 132/81; PULSE 98; RESP 18; TEMP 36.6; O2SAT 100
[2019-05-19 13:17] LABS: Influenza A and B by PCR Rapid Negative (Negative)
[2019-05-19 14:08] VITALS: BP 130/71; PULSE 86; RESP 20; O2SAT 96
[2019-05-19] MEDS: ALBUTEROL/IPRATROPIUM 3 ML AMPUL INH (14:19)
[2019-05-19 14:20] VITALS: PULSE 86; RESP 17; O2SAT 97
[2019-05-19 15:09] VITALS: BP 123/69; PULSE 84; RESP 12; O2SAT 98
--- NOTE | 2019-05-19 15:22 | ED_ITS ---
HPI - URI/Sore Throat <PARISH BecerraP - Last Filed: 05/20/19 01:42> General Chief Complaint: Upper Respiratory Symptoms Stated Complaint: 18 weeks coughing up blood/cough today Time Seen by Provider: 05/19/19 13:27 Source: patient Mode of arrival: Ambulatory Limitations: no limitations History of Present Illness HPI Narrative: This is a 29-year-old female, smoker, who is currently at 18 weeks EGA came in to ED with cough and head congestion for last 10 days. Patient denies sore throat or difficulty swallowing. She is with early miscarriages/still . Patient reports she had coughed blood streaked sputum and had post to save emesis once prior coming into ED. Patient denies vaginal bleeding, contractions or cramping and states she has been feeling her movements as usual. She denies fever, chills but reports feeling sweaty at night. Patient denies short of breath. Patient has been hydrating with water and vitamin-C for her symptoms. Difficult to sleep at night due to cough. Related Data Home Medications Medication Instructions Recorded Confirmed topiramate [Topamax] 50 mg PO BID 09/15/18 09/15/18 bupropion HCl 150 mg PO BID 05/19/19 05/19/19 citalopram 20 mg PO DAILY 05/19/19 05/19/19 sertraline 50 mg PO DAILY 05/19/19 Previous Rx's Medication Instructions Recorded albuterol sulfate [Ventolin HFA] 2 inhalation INHALATION Q6H PRN 05/19/19 #18 gram Allergies Allergy/AdvReac Type Severity Reaction Status Date / Time oxcarbazepine Allergy Verified 05/19/19 12:46 [From Trileptal] Review of Systems <JENN Becerra - Last Filed: 05/20/19 01:42> Review of Systems Narrative: General: See HPI HEENT: The HPI Respiratory: HPI Cardiovascular: Denies chest pain, palpitations, orthopnea, edema. Gastrointestinal: Reports blood streak emesis x1 post-tussive. Denies nausea, abdominal pain, diarrhea, constipation, melena. : Denies dysuria, frequency, incontinence, hematuria, urinary retention. Musculoskeletal: Denies weakness, joint pain or bony pain. Skin: Denies rash, skin lesions, or other. Neurologic: Denies weakness, headache, numbness, change in speech, confusion, seizures, incoordination. Psychiatric: No concerning psychosocial issues. 12-point review of systems is negative except for those stated above. PFSH <JENN Becerra - Last Filed: 05/20/19 01:42> Medical History Asthma (Acute) Bronchitis (Acute) Epilepsy (Acute) Otitis media (Acute) PCOS (polycystic ovarian syndrome) (Acute) Social History Smoking Status: Current every day smoker Social History Smoking Status: Current every day smoker Exam <JENN Becerra - Last Filed: 05/20/19 01:42> Narrative Exam Narrative: GEN: Alert, oriented x 3, well appearing and nourished, and in no acute distress. Head: Normal cephalic, atraumatic. No scalp or temporal tenderness, palpable mass or rash. EYES: Pupils are equal, round, and reactive to light and accommodation. Extraocular muscles are intact bilaterally. There is no subconjunctival hemorrhage, exudate and sclera non-icteric. ENT: Bilateral auditory canals and tympanic membranes clear. Hearing grossly intact. Nose without bleeding, purulent discharge or deviation. Facial sinuses nontender to palpate. Mucous membrane moist, no mucosal lesion. Throat without erythema, tonsillar hypertrophy or exudate. Uvula in midline, airway patent. Neck: Trachea in midline. No JVD, non-tender without lymphadenopathy. No masses or thyroid megaly. Supple, non-tender and no meningeal signs. CARDIAC: Normal regular rate and rhythm without murmurs, gallops, or rubs. No chest wall tenderness. No peripheral edema, cyanosis or pallor. Capillary refill is less than 2 seconds. RESPIRATORY: Lungs are cleat to auscultate bilaterally. No cough, wheezes, r ales, or rhonchi. No stridor, respiratory distress, increase work of breathing, or accessary muscle used. ABD: Abdomen soft, nontender and non-distended. No guarding or rebound tenderness to palpate. Bowel sounds are normal in all 4 quadrants. There is no palpable masses or organomegaly. EXT: Full painless ROM of all extremities with no loss of sensation, strength, effusion or edema. SKIN: Warm, dry, normal color for patient. No erythema, lesions or rash over visible areas. BACK: Nontender without deformity or crepitance. No flank tenderness. NEUROLOGICAL: Alert and oriented to place, time and person. Sensation and motor function intact bilaterally. No facial droops, dysphasia. PSYCHIATRIC: Good judgement and reason, without hallucinations, abnormal affect or abnormal behaviors during the examination. Initial Vital Signs Initial Vital Signs: Vital Signs Temperature 97.8 F 05/19/19 12:41 Pulse Rate 98 H 05/19/19 12:41 Respiratory Rate 18 05/19/19 12:41 Blood Pressure 132/81 05/19/19 12:41 Pulse Oximetry 100 05/19/19 12:41 <Laxmi Arias DO - Last Filed: 05/24/19 19:31> Initial Vital Signs Initial Vital Signs: Vital Signs Temperature 97.8 F 05/19/19 12:41 Pulse Rate 98 H 05/19/19 12:41 Respiratory Rate 18 05/19/19 12:41 Blood Pressure 132/81 05/19/19 12:41 Pulse Oximetry 100 05/19/19 12:41 Course <JENN Becerra - Last Filed: 05/20/19 01:42> Orders Ordered: Discontinued Medications Albuterol/Ipratropium (Duoneb) 3 ml INH NOW ONE Stop: 05/19/19 14:09 Last Admin: 05/19/19 14:19 Dose: 3 ml Documented by: JFREELA Vital Signs Vital signs: Vital Signs - 8 hr 05/19/19 12:41 05/19/19 14:08 05/19/19 14:20 Temperature 97.8 F Pulse Rate 98 H 86 86 Respiratory Rate 18 20 17 Blood Pressure 132/81 Blood Pressure [Left Arm] 130/71 Pulse Oximetry 100 96 97 05/19/19 15:09 Temperature Pulse Rate 84 Respiratory Rate 12 Blood Pressure Blood Pressure [Left Arm] 123/69 Pulse Oximetry 98 <DO Glenny Tamayo Last Filed: 05/24/19 19:31> Orders Ordered: Discontinued Medications Albuterol/Ipratropium (Duoneb) 3 ml INH NOW ONE Stop: 05/19/19 14:09 Last Admin: 05/19/19 14:19 Dose: 3 ml Documented by: ANDREINA Vital Signs Vital signs: Vital Signs - 8 hr 05/19/19 12:41 05/19/19 14:08 05/19/19 14:20 Temperature 97.8 F Pulse Rate 98 H 86 86 Respiratory Rate 18 20 17 Blood Pressure 132/81 Blood Pressure [Left Arm] 130/71 Pulse Oximetry 100 96 97 05/19/19 15:09 Temperature Pulse Rate 84 Respiratory Rate 12 Blood Pressure Blood Pressure [Left Arm] 123/69 Pulse Oximetry 98 MDM - URI/Sore Throat <JENN Becerra - Last Filed: 05/20/19 01:42> Differential Diagnosis Differential diagnosis: Likely upper respiratory infection, viral infection and bronchitis Medical Records Attestation: I reviewed the patient's medical records. Lab Data Labs: Lab Results 05/19/19 Range/Units 12:43 Influenza A & B (PCR) Negative (Negative) MDM Narrative Medical decision making narrative: This is 29-year-old female, smoker, who is at 18 EGA with chief complain of cough and head congestion for 10 days. Patient was able to speak full sentences without difficulty. Skin was warm, dry and pink. Was no respiratory distress noted. Lung sounds are clear in all lobes. Patient reports there was no additional coughing or vomiting of blood streak mucous after once this morning. Patient was provided with 1 neb treatment while in ED and it has helped her with breathing. Patient was afebrile in ED with normal vital signs. She was advised to take [id number] Tylenol for fever or pain and plain Robitussin if she elects for cough and hydrate well. Advised clean normal saline or the contaminated water with Neti potty as needed for sinus congestion. Refilled Ventolin as requested and patient advised to follow up with her scheduled [facility] as scheduled on Friday. Patient verbalized the understanding and agrees with treatment plan. <Laxmi Arias DO - Last Filed: 05/24/19 19:31> Lab Data Labs: Lab Results 05/19/19 Range/Units 12:43 Influenza A & B (PCR) Negative (Negative) Discharge Plan Departure Patient Disposition: Home Clinical Impression: Upper respiratory infection Qualifiers: URI type: unspecified URI Qualified Code(s): J06.9 - Acute upper respiratory infection, unspecified Discharge Date/Time: 05/19/19 16:06 Instructions: DI for Cough -- Adult Activity Restrictions/Additional Instructions: You have been diagnosed with [upper respiratory infection likely from viral infection.]. What to do: *Take your medications as directed. Please take [id number] plain Tylenol and plain Robitussin for cough as needed. Nasal rinse may help with congestion and postnasal drip. I have ordered Albuterol inh for you. *Follow up with your primary care provider in 2-3 days, as scheduled. Let them know you were seen in the ED and that we asked you to be seen in follow up. *Return to ED if you have any new, worsening, or concerning symptoms, such as [vaginal bleeding, chest pain, dizziness, breathing difficulty, worsening nausea and vomiting, increasing blood in your vomit or fever]. Prescriptions: New albuterol sulfate [Ventolin HFA] 90 mcg/actuation HFA aerosol inhaler 2 inhalation INHALATION Q6H PRN (Reason: shortness of breath or wheezing) Qty: 18 RF: 0 No Action bupropion HCl 150 mg tablet sustained-release 12 hr 150 mg PO BID RF: 0 citalopram 20 mg tablet 20 mg PO DAILY RF: 0 sertraline 50 mg tablet 50 mg PO DAILY RF: 0 topiramate [Topamax] 50 mg Tablet 50 mg PO BID RF: 0
== END 2019-05-19 16:06 | disposition home or self-care (01) ==
PROVIDERS: Emergency Medicine; Emergency Provider Nurse Practitioner Family
DX: J06.9 Acute upper respiratory infection, unspecified (principal)
CPT/HCPCS: 87400; 87502; 94640; 99282; 99283

== ENCOUNTER 2019-08-26 21:22 | Observation (INO) | payer OTHER, MEDICAID, SELFPAY ==
[2019-08-26 22:14] LABS: Add Manual Diff / Slide Review NO; Basophils Absolute Auto 100 /uL (0-100); Basophils Percent Auto 0.5 % (0-2); Eosinophils Absolute Auto 300 /uL (0-450); Eosinophils Percent Auto 1.6 % (2-4); Hematocrit 32.3 % (36-46); Hemoglobin 11.4 g/dL (12.0-16.0); Lymphocytes Absolute Auto 2500 /uL (1100-4500); Lymphocytes Percent Auto 14.3 % (25-40); Mean Corpuscular HGB Conc 35.1 % (30-36); Mean Corpuscular Hemoglobin 33.5 PG (26-34); Mean Corpuscular Volume 95.4 fL (80-100); Monocytes Absolute Auto 1000 /uL (0-900); Monocytes Percent Auto 5.7 % (3-14); Neutrophils Absolute Auto 13800 /uL (1500-7000); Neutrophils Percent Auto 77.9 % (50-75); Platelet Count 184 X10^3/uL (150-400); Red Blood Cell Count 3.39 X10^6/uL (4.0-5.2); Red Cell Distribution Width 12.9 % (11.6-14.8); White Blood Cell Count 17.7 X10^3/uL (4.5-11.0)
[2019-08-26 22:21] LABS: Aspartate Aminotransferase 15 IU/L (14-36); Blood Urea Nitrogen 11 mg/dL (7-17); Estimated Glomerular Filt Rate > 60.0 mL/min (>60); Uric Acid 4.3 mg/dL (2.5-6.2)
--- NOTE | 2019-08-26 22:26 | PM.OBTRLD ---
Visit Information Visit Information Date of evaluation: 08/26/19 On-call OB Provider: Maribell Reyna Reason for Evaluation: Yes rupture of membranes Comments/Additional reasons for admission: Patient is a 21-year-old G 20 P2 at 32 weeks gestation who presents with concern for rupture of membranes at approximately 8:30 p.m.. She has been receiving care with Dr. Shen at [facility] and states her due date is October 20. She was at work at [employer] in [facility] this evening out on a smoking break when she coughed, felt a pop then had a significant amount of warm fluid soak her pants. She was concerned that her water broke and came to [facility] for evaluation. She denies bleeding or contractions though has felt some tightening in her abdomen. Has had a slight headache for the last 2 days. She has had blurry vision but states that is not new. Denies edema or right upper quadrant abdominal pain. is complicated by epilepsy (last seizure last week), preeclampsia and labor per patient. 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 She is not currently on any medications for preeclampsia or epilepsy. She smokes cigarettes daily as well as marijuana. Her 6-year-old daughter lives with her father in [place] and sees her on the weekends. She delivered her daughter at approximately 40 weeks and had preeclampsia with that . She also had a 25 week demise in addition to multiple miscarriages. Vital Signs Vital Signs: Temperature 36.7 Blood pressure 139/86 pulse 102 Repeat blood pressure 133/65 pulse 90 PFSH Medical History Asthma (Acute) Bronchitis (Acute) Epilepsy (Acute) History of recurrent miscarriages (Acute) Otitis media (Acute) PCOS (polycystic ovarian syndrome) (Acute) Tobacco use during (Acute) Surgical History (Updated 08/26/19 @ 23:06 by Maribell Reyna DO) History of cholecystectomy (Acute) Social History Smoking Status: Current every day smoker Review of Systems Constitutional Constitutional: Denies fatigue, Denies fever(s) and Reports headache(s) Eyes Eyes: Denies change in vision ENT Ears, Nose, Mouth, and Throat: Yes headache(s) Comments: Think she has a dental infection Cardiovascular Cardiovascular: Denies chest pain Respiratory Respiratory: Reports cough Gastrointestinal Gastrointestinal: Denies abdominal pain and Denies vomiting Genitourinary Genitourinary: Denies urinary frequency Neurologic Neurologic: Reports headache(s) Endocrine Endocrine: Denies fatigue Exam Vital Signs (past 8 hours): Temperature 36.7? Blood pressure 133/65 Pulse 90 Const General: healthy appearing and comfortable HENMT Head: normal to inspection Ears: hearing grossly normal bilaterally Nose: external nose normal Face and sinus: normal facial exam Teeth and gingiva: poor dentition (Obvious decay) Eyes General: appearance normal, both eyes and all related structures Neck Neck: normal visual inspection Resp Effort & Inspection: normal respiratory effort Auscultation: clear to auscultation bilaterally Cardio Rate: regular rate Rhythm: regular rhythm Heart Sounds: no murmurs GI Other: Gravid External Female Exam: external appearance normal Manual OB Exam: dilated (0), effaced 25% and station high Presentation: vertex Skin General: no rashes or lesions noted Extrem General: normal to inspection and no pedal edema Objective Labs Result Diagrams: 08/26/19 21:50 08/26/19 21:50 Labs: Laboratory Results - last 24 hr 08/26/19 21:50 BUN 11 Creatinine 0.50 L Estimated GFR > 60.0 BUN/Creatinine Ratio 22.0 Uric Acid 4.3 AST 15 Evaluation Evaluation Baseline heart rate: 140 Variability: Moderate (11-25) monitor accelerations: Present monitor decelerations: Absent Contraction Frequency (minutes): 0 Cervical dilation (cm): 0 Cervical effacement (%): 25 station: -3 Laboratory results: Laboratory Tests 08/26/19 21:50 BUN 11 Creatinine 0.50 L Estimated GFR > 60.0 BUN/Creatinine Ratio 22.0 Uric Acid 4.3 AST 15 Non-invasive Membranes Rupture Test: negative Diagnosis, Plan/Disposition Final Diagnosis (1) 32 weeks gestation of : Current Visit: Yes Status: Acute (2) Epilepsy: Current Visit: No Status: Acute (3) Tobacco use during : Current Visit: Yes Status: Acute Plan/Disposition Plan: Patient is a 29-year-old G 20 P2 at 32 weeks gestation with IRIS of 10/21/19. complicated by epilepsy and preeclampsia. She came in this evening due to concern for rupture membranes. AmniSure was negative. Labs were done due to preeclampsia though blood pressures were normal here. Urine protein creatinine ratio was elevated as it has been based on available records. GBS was collective and is pending. She had 1 contraction on the monitor and cervix was closed and high. heart tones reactive. Patient will discharge to home with close to follow-up with her primary truckman.
[2019-08-26 22:51] LABS: Bacteria Urine None Seen; WBC Urine None Seen (0-5/HPF)
[2019-08-26 22:53] LABS: Appearance Urine UA CLEAR; Bilirubin Urine UA NEGATIVE (NEGATIVE); Color Urine UA YELLOW; Glucose Urine UA NEGATIVE (Negative); Ketones Urine UA NEGATIVE (NEGATIVE); Leukocyte Esterase Urine UA NEGATIVE (NEGATIVE); Nitrite Urine UA NEGATIVE (Negative); Occult Blood Urine UA 3+ (Negative); Protein Urine UA TRACE (Negative); Specific Gravity Urine UA >=1.030 (1.000-1.035); Urobilinogen Urine UA 0.2 E.U./dL (0.2)
[2019-08-26 22:56] LABS: pH Urine UA 5.5 (4.5-8.0)
[2019-08-26 23:08] LABS: Culture Indicated Urine Cult Not Indicated; RBC Urine 5-10/HPF (0-5/HPF); Squamous Epithelial Cell Urine 0-1 /HPF (0-5/HPF)
[2019-08-26 23:50] LABS: Creatinine Urine Random 144.9 mg/dL
[2019-08-26 23:56] LABS: Microalbumin Urine Random 10.3 mg/dL (0-1.6)
[2019-08-27 00:38] LABS: Strep Grp B PCR NEG for Grp B Strep
[2019-08-27] MEDS: LACTATED RINGERS 1,000 ML 1000 ML IV (01:48)
== END 2019-08-27 00:15 | disposition home or self-care (01) ==
LOC: LABOR 21:24
PROVIDERS: Admitting Provider Family Medicine; Visit Provider Family Medicine
DX: O14.93 Unspecified pre-eclampsia, third trimester (principal); O99.353 Diseases of the nervous system complicating pregnancy, third trimester; O26.23 Pregnancy care for patient with recurrent pregnancy loss, third trimester; O99.333 Smoking (tobacco) complicating pregnancy, third trimester; O47.03 False labor before 37 completed weeks of gestation, third trimester; Z3A.32 32 weeks gestation of pregnancy
CPT/HCPCS: 59025; 81001; 82043; 82570; 84112; 84450; 84550; 85025; 86850; 86900; 86901; 87653; G0378; G0379

== ENCOUNTER 2019-10-02 13:35 | Outpatient (CLI) | payer OTHER, MEDICAID, SELFPAY ==
--- NOTE | 2019-10-03 11:22 | PM.OBTRLD ---
Visit Information Visit Information Date of evaluation: 10/02/19 On-call OB Provider: Tonya Rosenthal Reason for Evaluation: Yes rule out labor Vital Signs Vital Signs: Blood pressure 123/84, pulse of 100, temperature 97.8? PFSH Medical History Asthma (Acute) Bronchitis (Acute) Epilepsy (Acute) History of recurrent miscarriages (Acute) Otitis media (Acute) PCOS (polycystic ovarian syndrome) (Acute) Tobacco use during (Acute) Surgical History (Updated 08/26/19 @ 23:06 by Maribell Reyna DO) History of cholecystectomy (Acute) Social History Smoking Status: Current every day smoker Review of Systems Review of Systems Narrative: Patient complained of contractions but no leakage of fluid. Patient has a history of seizure disorder but last seizure was 3 weeks ago. No headaches, scotomata, epigastric pain. ROS: Yes All systems reviewed with the patient and are negative except as otherwise documented Evaluation Evaluation Baseline heart rate: 150 Variability: Moderate (11-25) monitor accelerations: Present monitor decelerations: Absent Contraction Frequency (minutes): 10 Uterine Contraction Intensity: Mild Category of Tracing: I Cervical dilation (cm): 0 Cervical effacement (%): 0 station: -3 Diagnosis, Plan/Disposition Final Diagnosis (1) 37 weeks gestation of : Current Visit: No Status: Acute (2) Premature uterine contractions, antepartum: Current Visit: No Status: Acute Plan/Disposition Plan: Patient with contractions but not in labor. Reassured the patient. She is to follow up at her primary OB Clinic. OB Disposition: home
== END 2019-10-02 14:29 | disposition home or self-care (01) ==
LOC: OB 10-04 09:37
PROVIDERS: Referring Provider Specialist; Visit Provider Specialist
DX: O26.23 Pregnancy care for patient with recurrent pregnancy loss, third trimester (principal); O99.333 Smoking (tobacco) complicating pregnancy, third trimester; Z3A.37 37 weeks gestation of pregnancy
CPT/HCPCS: 59025; G0378; G0379

== ENCOUNTER 2019-11-15 16:39 | Emergency (ER) | payer OTHER, MEDICAID, SELFPAY ==
[2019-11-15 16:46] VITALS: BP 155/74; PULSE 73; RESP 16; TEMP 36.6; O2SAT 96; BMI 32.0
--- NOTE | 2019-11-15 17:01 | ED.FEMALEGU ---
HPI - Female Genitourinary General Chief complaint: Urogenital-Female Stated complaint: IUD IS COMING OUT Time Seen by Provider: 11/15/19 16:45 Source: patient Mode of arrival: Ambulatory History of Present Illness HPI Narrative: 29-year-old woman, G9,P6 5 weeks . Presents complaining that her IUD is falling out. Both she and her partner can easily feel the strings and she is having some mild uterine cramping. She has not yet had a menses, is currently breast-feeding and has no complaints otherwise. Related Data Home Medications Medication Instructions Recorded Confirmed topiramate [Topamax] 50 mg PO BID 09/15/18 09/15/18 bupropion HCl 150 mg PO BID 05/19/19 05/19/19 citalopram 20 mg PO DAILY 05/19/19 05/19/19 sertraline 50 mg PO DAILY 05/19/19 Previous Rx's Medication Instructions Recorded albuterol sulfate [Ventolin HFA] 2 inhalation INHALATION Q6H PRN 05/19/19 #18 gram Allergies Allergy/AdvReac Type Severity Reaction Status Date / Time oxcarbazepine Allergy Verified 11/15/19 16:46 [From Trileptal] Review of Systems Review of Systems Narrative: Denies ? fever ? cough ? cold ? chills ? chest pain ? dyspnea ? wheezing ? change to bowel or bladder habits ? nausea vomiting ? skin changes ? rashes Patient History Medical History Asthma (Acute) Bronchitis (Acute) Epilepsy (Acute) History of recurrent miscarriages (Acute) Otitis media (Acute) PCOS (polycystic ovarian syndrome) (Acute) Tobacco use during (Acute) Surgical History History of cholecystectomy (Acute) alcohol intake frequency: holidays/special occasions only Substance Use Type: marijuana Exam Narrative Exam Narrative: General: Alert appropriate in no acute distress Respiratory: Able to speak in full sentences, no obvious respiratory distress Skin: No obvious rashes, warm and dry Neurologic: Grossly intact no obvious asymmetries or abnormalities Psych, appropriate insight and affect, cooperative Pelvic: gentle bimanual exam reveals IUD strings visible outside the vaginal introitus. Stem of the IUD is palable outside of the vaginal os. Gentle pull with fingers alone and the IUD was removed without difficulty. Initial Vital Signs Initial Vital Signs: Vital Signs Temperature 97.8 F 11/15/19 16:46 Pulse Rate 73 11/15/19 16:46 Respiratory Rate 16 11/15/19 16:46 Blood Pressure 155/74 H 11/15/19 16:46 Pulse Oximetry 96 11/15/19 16:46 Course Vital Signs Vital signs: Vital Signs - 8 hr 11/15/19 16:46 Temperature 97.8 F Pulse Rate 73 Respiratory Rate 16 Blood Pressure 155/74 H Pulse Oximetry 96 MDM - Female Genitourinary MDM Narrative Medical decision making narrative: IUD is 90% expelled. Easily removed from the cervical canal without any procedural set up. Tolerated well. Discussed the risks of . Discharge Plan Departure Patient Disposition: Home Clinical Impression: Encounter for IUD removal Instructions: Control for Women Activity Restrictions/Additional Instructions: Thank you for coming in today You are correct, your IUD was mostly out and was easily removed with my fingers alone. This means, you can get tonight! After 6 children, you have said you understand the logistics and know what needs to be done to prevent that:) You need to use either condoms or abstinence until you are able to get your tubes tied once they are doing elective surgeries after he covid pandemic has slow down. Good luck! Prescriptions: No Action bupropion HCl 150 mg tablet sustained-release 12 hr 150 mg PO BID RF: 0 citalopram 20 mg tablet 20 mg PO DAILY RF: 0 sertraline 50 mg tablet 50 mg PO DAILY RF: 0 albuterol sulfate [Ventolin HFA] 90 mcg/actuation HFA aerosol inhaler 2 inhalation INHALATION Q6H PRN (Reason: shortness of breath or wheezing) Qty: 18 RF: 0 topiramate [Topamax] 50 mg Tablet 50 mg PO BID RF: 0
== END 2019-11-15 17:11 | disposition home or self-care (01) ==
PROVIDERS: Emergency Provider Emergency Medicine
DX: T83.39XA Other mechanical complication of intrauterine contraceptive device, initial encounter (principal); Z30.432 Encounter for removal of intrauterine contraceptive device
CPT/HCPCS: 99281